=== PATIENT | male | born 1985 | race Caucasian/White ===

== ENCOUNTER 2016-10-08 15:44 | Emergency (ER) | payer MEDICAID ==
--- NOTE | 2016-10-08 16:03 | Emergency Department Record ---
History of Present Illness - General Chief complaint: Extremity Problem Stated complaint: PAIN IN LEFT ARM, HISTORY OF BLO C Time Seen by Provider: 10/08/16 16:02 Source: Patient Mode of Arrival: Ambulatory Limitations: No limitations - History of Present Illness Initial comments: The patient is here due to a sharp stabbing pain in the L bicep area. The pain is intermittent and is associated with intermittent numbness and tingling to his L hand. Presently there is no numbness or tingling. The patient also denies any CP, SOB, SHELIA or cough. Per the patient he has a hx of a blood clot in one of his arms but he is not sure which one. He has been on blood thinners in the past many years ago but not now. He is concerned about having a clot and would like a doppler test. MD Complaint: Extremity pain Onset/Timin -: Hour(s) Location: Left, Arm History of Same: Yes Severity scale (1-10): 8 Quality: Sharp, Stabbing, Other Consistency: Intermittent Improves with: Nothing Worsens with: Nothing Associated Symptoms: Denies other symptoms - Related Data Previous Rx's Medication Instructions Recorded Diazepam [Valium] 5 mg PO Q8H #10 tab 09/06/16 Hydrocodone/Acetaminophen [[place] 1 tab PO Q6H PRN #7 tab 09/06/16 5mg/325mg] Lisinopril 20 mg PO DAILY #30 tab 10/08/16 Allergies Allergy/AdvReac Type Severity Reaction Status Date / Time phenytoin sodium Allergy Severe ANAPHYLAXIS Verified 09/06/16 20:52 [From Dilantin] phenytoin sodium extended Allergy Severe ANAPHYLAXIS Verified 09/06/16 20:52 [From Dilantin] ketorolac tromethamine Allergy Intermediate MUSCLE PAIN Verified 09/06/16 20:52 [From Toradol] fluoxetine HCl [From Prozac] Allergy Unknown PT UNSURE Verified 09/06/16 20:52 OF REACTION carbamazepine [From Tegretol] Allergy ANAPHYLAXIS Verified 09/06/16 20:52 divalproex sodium Allergy ANAPHYLAXIS Verified 09/06/16 20:52 [From Depakote] Travel Screening - Travel/Exposure Within Last 30 Days Have you traveled within the last 30 days?: No - Travel/Exposure Within Last Year Have you traveled outside the [place] in the last year?: No - Additonal Travel Details Have you been exposed to anyone with a communicable illness?: No - Travel Symptoms Symptom Screening: None Review of Systems Constitutional: Denies: Chills, Fever Eyes: Denies: Eye discharge ENT: Denies: Congestion Respiratory: Denies: Cough, Dyspnea Past Medical History - SOCIAL HISTORY Smoking Status: Light tobacco smoker (<10/day) Alcohol Use: Occassional Drug Use: Occassional Drug Use Detail:: Cocaine, Marijuana - RESPIRATORY Hx Respiratory Disorders: No - CARDIOVASCULAR Hx Cardio Disorders: Yes Hx Hypertension: Yes - NEURO Hx Neuro Disorders: Yes Hx Seizures: Yes - GI Hx GI Disorders: No - Hx Genitourinary Disorders: No - ENDOCRINE Hx Endocrine Disorders: No - MUSCULOSKELETAL Hx Musculoskeletal Disorders: No - PSYCH Hx Psych Problems: No - HEMATOLOGY/ONCOLOGY Hx Hematology/Oncology Disorders: No Family Medical History Any Significant Family History?: Yes Hx HTN: Grandparents Physical Exam - General General Appearance: Alert, Oriented x3, Cooperative, No acute distress - Head Head exam: Atraumatic, Normocephalic, Normal inspection - Eye Eye exam: Normal appearance, PERRL - Neck Neck exam: Normal inspection, Full ROM. negative: Tenderness - Respiratory Respiratory exam: Normal lung sounds bilaterally. negative: Respiratory distress - Cardiovascular Cardiovascular Exam: Regular rate, Normal rhythm, Normal heart sounds - Extremities Extremities exam: Normal inspection, Full ROM (There is normal ROM to the L shoulder, elbow and wrist with no pain or difficulty.), Normal capillary refill , Tenderness (There is very mild tenderness to the medial bicep but no arm bruising, swelling, or erythema. ), Other (The L arm is NVI with normal pulses, sensation and motor function.). negative: Joint swelling - Neurological Neurological exam: Alert. negative: Motor sensory deficit Course Vital Signs 10/08/16 10/08/16 15:49 15:54 Temperature 98.2 F 98.2 F Pulse Rate [ 77 Pulse Ox Probe] Respiratory 16 16 Rate Blood Pressure 149/86 [Left Arm] Pulse Ox 98 98 - Reevaluation(s) Reevaluation #1: Due to the patient needing a Doppler test to R/O DVT and no US available here at [facility] I did recommend transfer to another hospital for the test. The patient states he would like to go to [facility]. I did discuss the case with Dr. Bradshaw in the ER and he accepts the patient in an ER to ER transfer. The patient also states he is out of his Lisinopril and would like a refill. 10/08/16 16:15 Reevaluation #2: The patient's exam is basically normal at this time and I do feel he has a very low probability of having an upper extremity DVT. With the patient being so stable at this time he will drive himself to the ER at [facility]. 10/08/16 16:20 Disposition Disposition: Discharge Clinical Impression: Arm pain, left Disposition: Acute Care Hospital Transfer Transfer To: [facility] Reason For Transfer: Doppler Accepting Physician: Leeann Time Discussed w/Accepting Physician: 16:17 Condition: (2) Stable Instructions: Paresthesia (ED) Additional Instructions: Please drive directly to the ER at [facility] for your Doppler test. Restart your Lisinopril as directed. Return to the ER for any problems. Prescriptions: Lisinopril 20 mg PO DAILY #30 tab Forms: Patient Portal Access Time of Disposition: 16:19
== END 2016-10-08 16:37 | disposition short-term general hospital (02) ==
LOC: ER 15:44
DX: M79.622 Pain in left upper arm (principal); I10 Essential (primary) hypertension; F17.210 Nicotine dependence, cigarettes, uncomplicated
CPT/HCPCS: 99283

== ENCOUNTER 2017-05-07 20:34 | Emergency (ER) | payer MEDICAID ==
[2017-05-07] MEDS ORDERED: IPRATROPIUM/ALBUTEROL (0.5MG/3MG) NEB INH ONE (21:34)
[2017-05-07] MEDS ORDERED: AMOXICILLIN/POTASSIUM CLAV 875MG/125MG TABLET PO ONE (21:34)
--- NOTE | 2017-05-07 21:54 | Emergency Department Record ---
History of Present Illness - General Chief complaint: Pain Stated complaint: PAIN IN RT GROIN Time Seen by Provider: 05/07/17 21:27 Source: Patient Mode of Arrival: Ambulatory Limitations: No limitations - History of Present Illness Initial comments: pt has productive cough green and ingrown hair on l thigh that he tried to squeeze and it became worse. pt wears a prosthesis and it rubs over ingrown hair causing pain Onset/Timin -: Week(s) Location: Right History of Same: No Severity scale (1-10): 8 Quality: Sharp, Stabbing Consistency: Intermittent, Getting worse Improves with: Immobilization Worsens with: Palpation, Walking, Weight bearing Associated Symptoms: Denies other symptoms - Related Data Home Medications Medication Instructions Recorded Confirmed Last Taken Bupropion HCl [Wellbutrin Xl] 300 mg PO DAILY 05/07/17 05/07/17 05/07/17 Diazepam [Valium] 10 mg PO DAILY 05/07/17 05/07/17 05/06/17 Hydrocodone/Acetaminophen [[place] 1 each PO BID PRN 05/07/17 05/07/17 05/06/17 7.5-325 Tablet] Previous Rx's Medication Instructions Recorded Amoxicillin/Potassium Clav 1 tab PO BID #14 tab 05/07/17 [Augmentin 875-125 Tablet] Allergies Allergy/AdvReac Type Severity Reaction Status Date / Time phenytoin sodium Allergy Severe ANAPHYLAXIS Unverified 01/11/17 08:35 [From Dilantin] phenytoin sodium extended Allergy Severe ANAPHYLAXIS Unverified 01/11/17 08:35 [From Dilantin] ketorolac tromethamine Allergy Intermediate MUSCLE PAIN Unverified 01/11/17 08: 35 [From Toradol] fluoxetine HCl [From Prozac] Allergy Unknown PT UNSURE Unverified 01/11/17 08:35 OF REACTION aripiprazole [From Abilify] Allergy ANAPHYLAXIS Verified 05/07/17 20:47 carbamazepine [From Tegretol] Allergy ANAPHYLAXIS Unverified 01/11/17 08:35 divalproex sodium Allergy ANAPHYLAXIS Unverified 01/11/17 08:35 [From Depakote] Travel Screening - Travel/Exposure Within Last 30 Days Have you traveled within the last 30 days?: No - Travel Symptoms Symptom Screening: None Review of Systems Reviewed: No additional complaints except as noted below Constitutional: Reports: As per HPI. Denies: Chills, Fever, Malaise, Night sweats, Weakness, Weight change Eyes: Reports: As per HPI. Denies: Eye discharge, Eye pain, Photophobia, Vision change ENT: Reports: As per HPI. Denies: Congestion, Dental pain, Ear pain, Epistaxis , Hearing loss, Throat pain Respiratory: Reports: As per HPI. Denies: Cough, Dyspnea, Hemoptysis, Stridor, Wheezes Cardiovascular: Reports: As per HPI. Denies: Arrhythmia, Chest pain, Dyspnea on exertion, Edema, Murmurs, Orthopnea, Palpitations, Paroxysmal nocturnal dyspnea, Rheumatic Fever, Syncope Endocrine: Reports: As per HPI. Denies: Fatigue, Heat or cold intolerance, Polydipsia, Polyuria Gastrointestinal: Reports: As per HPI. Denies: Abdominal pain, Constipation, Diarrhea, Hematemesis, Hematochezia, Melena, Nausea, Vomiting Genitourinary: Reports: As per HPI. Denies: Dysuria, Frequency, Hematuria, Incontinence, Retention, Testicular pain, Testicular mass, Urgency Musculoskeletal: Reports: As per HPI. Denies: Arthralgia, Back pain, Gout, Joint swelling, Myalgia, Neck pain Skin: Reports: As per HPI. Denies: Bruising, Change in color, Change in hair/ nails, Lesions, Pruritus, Rash Neurological: Reports: As per HPI. Denies: Abnormal gait, Confusion, Headache, Numbness, Paresthesias, Seizure, Tingling, Tremors, Vertigo, Weakness Psychiatric: Reports: As per HPI. Denies: Anxiety, Auditory hallucinations, Depression, Homicidal thoughts, Suicidal thoughts, Visual hallucinations Hematological/Lymphatic: Reports: As per HPI. Denies: Anemia, Blood Clots, Easy bleeding, Easy bruising, Swollen glands Past Medical History - SOCIAL HISTORY Smoking Status: Light tobacco smoker (<10/day) Alcohol Use: None Drug Use: None - RESPIRATORY Hx Respiratory Disorders: No - CARDIOVASCULAR Hx Cardio Disorders: Yes Hx Hypertension: Yes - NEURO Hx Neuro Disorders: Yes Hx Seizures: Yes - GI Hx GI Disorders: No - Hx Genitourinary Disorders: No - ENDOCRINE Hx Endocrine Disorders: No - MUSCULOSKELETAL Hx Musculoskeletal Disorders: No - PSYCH Hx Psych Problems: No - HEMATOLOGY/ONCOLOGY Hx Hematology/Oncology Disorders: No Family Medical History Any Significant Family History?: Yes Hx HTN: Grandparents Physical Exam - General General Appearance: Alert, Oriented x3, Cooperative, No acute distress - Head Head exam: Normal inspection - Eye Eye exam: Normal appearance, PERRL, EOMI Pupils: Normal accommodation - ENT ENT exam: Normal exam, Mucous membranes moist, Normal external ear exam, Normal orophraynx, TM's normal bilaterally Ear exam: Normal external inspection. negative: External canal tenderness Nasal Exam: Normal inspection. negative: Discharge, Sinus tenderness Mouth exam: Normal external inspection, Tongue normal Teeth exam: Normal inspection. negative: Dental caries Throat exam: Normal inspection. negative: Tonsillar erythema, Tonsillar exudate - Neck Neck exam: Normal inspection, Full ROM. negative: Tenderness - Respiratory Respiratory exam: Normal lung sounds bilaterally. negative: Respiratory distress - Cardiovascular Cardiovascular Exam: Regular rate, Normal rhythm, Normal heart sounds - GI/Abdominal GI/Abdominal exam: Soft, Normal bowel sounds. negative: Tenderness - Rectal Rectal exam: Deferred - exam: Deferred - Extremities Extremities exam: Normal inspection, Full ROM, Normal capillary refill. negative: Tenderness - Back Back exam: Reports: Normal inspection, Full ROM. Denies: Muscle spasm, Rash noted, Tenderness - Neurological Neurological exam: Alert, CN II-XII intact, Normal gait, Oriented X3 - Psychiatric Psychiatric exam: Normal affect, Normal mood - Skin Skin exam: Dry, Intact, Normal color, Warm Type of lesion: Abscess (tiny on r thigh) Course Vital Signs 05/07/17 05/07/17 20:43 21:38 Temperature 98.4 F Pulse Rate 88 Pulse Rate [ 88 Pulse Ox Probe] Respiratory 20 20 Rate Blood Pressure 138/95 [Left Arm] Pulse Ox 98 Disposition Disposition: Discharge Clinical Impression: Bronchitis, Abscess Disposition: Home, Self-Care Condition: (1) Good Instructions: Acute Bronchitis (ED), Abscess (ED) Additional Instructions: warm soaks 4 times a day. follow up with family doctor. return sooner if worse. Prescriptions: Amoxicillin/Potassium Clav [Augmentin 875-125 Tablet] 1 tab PO BID #14 tab Forms: Patient Portal Access Quality - Quality Measures Quality Measures: N/A - Blood Pressure Screening Blood Pressure Classification: Hypertensive Reading Systolic Measurement: 138 Diastolic Measurement: 95 Screening for High Blood Pressure: < Pre-Hypertensive BP, F/U Documented > [ G8950] Pre-Hypertensive Follow-up Interventions: Follow-up with rescreen every year.
== END 2017-05-07 22:12 | disposition home or self-care (01) ==
LOC: ER 20:34
DX: J20.9 Acute bronchitis, unspecified (principal); L02.415 Cutaneous abscess of right lower limb
CPT/HCPCS: 94640; 99283

== ENCOUNTER 2017-05-15 22:53 | Emergency (ER) | payer MEDICAID ==
[2017-05-15] MEDS: IPRATROPIUM/ALBUTEROL (0.5MG/3MG) NEB INH ONE (23:06)
[2017-05-15] MEDS: ALBUTEROL SULFATE (0.083%) 2.5 MG/3 ML NEB INH ONE (23:15)
[2017-05-15] MEDS: METHYLPREDNISOLONE PF 125MG/VIAL IVP ONE (23:20)
[2017-05-15] MEDS: LORAZEPAM 2 MG/ML VIAL IV ONE (23:20)
--- NOTE | 2017-05-15 23:21 | Emergency Department Record ---
History of Present Illness - General Chief Complaint: Shortness of breath Stated Complaint: SHELIA Time Seen by Provider: 05/15/17 23:01 Source: Patient Mode of Arrival: Ambulatory Limitations: No limitations - History of Present Illness Initial Comments: The patient is here due to a 1 hour hx of SOB. He has been treated for about a week for bronchitis and is on Augmentin. He now states about an hour ago he became very SOB. He denies any CP, fever, back pain but has had mild sputum production. He did use his mothers nebulizer but it did not help. The patient has a hx of seizures and is on multiple medicines but denies being out of any. He states he has no hx of similar issues. MD Complaint: Shortness of breath Onset/Timin -: Hour(s) Consistency: Constant Improves With: Nothing Worsens With: Nothing Associated Symptoms: Cough, Sputum production - Related Data Home Medications Medication Instructions Recorded Confirmed Last Taken Bupropion HCl [Wellbutrin Xl] 300 mg PO DAILY 05/07/17 05/16/17 05/07/17 Diazepam [Valium] 10 mg PO DAILY 05/07/17 05/16/17 05/06/17 Hydrocodone/Acetaminophen [[place] 1 each PO BID PRN 05/07/17 05/16/17 05/06/17 7.5-325 Tablet] Previous Rx's Medication Instructions Recorded Amoxicillin/Potassium Clav 1 tab PO BID #14 tab 05/07/17 [Augmentin 875-125 Tablet] Albuterol Sulfate [Proair Hfa] 2 puff IH QID PRN #1 inhaler 05/16/17 Azithromycin [Zithromax] 250 mg PO ASDIR #6 tab 05/16/17 Prednisone [Prednisone 20Mg] 40 mg PO DAILY #10 tab 05/16/17 Allergies Allergy/AdvReac Type Severity Reaction Status Date / Time phenytoin sodium Allergy Severe ANAPHYLAXIS Unverified 01/11/17 08:35 [From Dilantin] phenytoin sodium extended Allergy Severe ANAPHYLAXIS Unverified 01/11/17 08:35 [From Dilantin] ketorolac tromethamine Allergy Intermediate MUSCLE PAIN Unverified 01/11/17 08: 35 [From Toradol] fluoxetine HCl [From Prozac] Allergy Unknown PT UNSURE Unverified 01/11/17 08:35 OF REACTION aripiprazole [From Abilify] Allergy ANAPHYLAXIS Verified 05/07/17 20:47 carbamazepine [From Tegretol] Allergy ANAPHYLAXIS Unverified 01/11/17 08:35 divalproex sodium Allergy ANAPHYLAXIS Unverified 01/11/17 08:35 [From Depakote] Review of Systems Constitutional: Denies: Chills, Fever Eyes: Denies: Eye discharge ENT: Reports: Congestion Respiratory: Reports: Cough. Denies: Dyspnea, Hemoptysis Cardiovascular: Denies: Chest pain Past Medical History - SOCIAL HISTORY Smoking Status: Light tobacco smoker (<10/day) Drug Use: None - RESPIRATORY Hx Respiratory Disorders: No - CARDIOVASCULAR Hx Cardio Disorders: Yes Hx Hypertension: Yes - NEURO Hx Neuro Disorders: Yes Hx Seizures: Yes - GI Hx GI Disorders: No - Hx Genitourinary Disorders: No - ENDOCRINE Hx Endocrine Disorders: No - MUSCULOSKELETAL Hx Musculoskeletal Disorders: No - PSYCH Hx Psych Problems: No - HEMATOLOGY/ONCOLOGY Hx Hematology/Oncology Disorders: No Family Medical History Hx HTN: Grandparents Physical Exam - General General Appearance: Alert, Cooperative, Mild distress (due to SHELIA.) - Head Head exam: Atraumatic, Normocephalic, Normal inspection - Eye Eye exam: Normal appearance, PERRL - ENT Throat exam: Normal inspection. negative: Tonsillar erythema, Tonsillar exudate - Neck Neck exam: Normal inspection, Full ROM. negative: Lymphadenopathy, Tenderness - Respiratory Respiratory exam: Accessory muscle use, Respiratory distress (mild). negative: Normal lung sounds bilaterally, Decreased breath sounds (There is good aeration bilaterally with wheezes at the bases L>R.), Rales - Cardiovascular Cardiovascular Exam: Regular rate, Normal rhythm, Normal heart sounds - GI/Abdominal GI/Abdominal exam: Soft, Normal bowel sounds. negative: Tenderness Course Vital Signs 05/15/17 23:06 Pulse Rate 113 H Respiratory 26 H Rate Pulse Ox 100 - Reevaluation(s) Reevaluation #1: The patient is doing better at this time. His breathing is slowing down and his HR is around 100. His biox is 100% on 2 L of O2. The patient appears much more comfortable. 05/15/17 23:29 Reevaluation #2: The patient is doing better but is still having some SHELIA. His lungs are clear on exam and his Biox is 98%. There no longer are any wheezes or retractions. 05/16/17 00:25 Reevaluation #3: The patient is doing extremely well at this time. His breathing is back to normal and his RA biox is 99%. On exam his lungs are clear with no wheezes or rhonchi. 05/16/17 01:21 Reevaluation #4: The patient is now 100% back to normal. His RA biox is 100% and he denies any SHELIA, ST, speech changes, or SOB. He is up walking and talking normally and would really like to go home. I explained to him I am not sure what exactly caused his SHELIA that brought him to the ER. His lungs were clear for me from the beginning so I am not sure if he was just having an anxiety attack or possibly even an allergic rxn. Due to the confusion as to the etiology of his illness I did recommend hospital admission. I explained to him that I wanted him to stay overnight to monitor his heart and lungs and to make sure he did not have an AR even though I do believe that it is quite unlikely. The patient states he is unable to stay in the hospital and would like to go home. I explained to him that the risks of leaving are that he could go home and have an AR, stroke, become disabled and even . The patient understands and accepts the risks of leaving and understands we cannot be held liable for NOT admitting him to the hospital. Her presently has proper decision making capacity and understands the need to return if his symptoms return. He is to take an inhaller for home and also start a ZPAK along with Prednisone. 05/16/17 01:46 05/16/17 02:07 Medical Decision Making - Data Complexity MDM Data: Labs Ordered and/or Reviewed, X-Ray Ordered and/or Reviewed, EKG Ordered and/or Reviewed - Lab Data Result diagrams: 05/15/17 23:10 05/15/17 23:10 - EKG Data -: EKG Interpreted by Me EKG: No Acute Changes, Normal EKG - Radiology Data Radiology results: Image reviewed (CXR: Neg ST Neck: Neg) Disposition Disposition: Discharge Clinical Impression: Dyspnea, unspecified Qualifiers: Dyspnea type: unspecified Qualified Code(s): R06.00 - Dyspnea, unspecified Disposition: Home, Self-Care Condition: (1) Good Instructions: Dyspnea (ED) Additional Instructions: Please use the inhaller as directed and start the Zpak and Prednisone tomorrow. Please see your PCP later this week for recheck. Return to the ER for any increased cough, ANY shortness of breath or trouble breathing or any chest pain or fever. Prescriptions: Albuterol Sulfate [Proair Hfa] 2 puff IH QID PRN #1 inhaler PRN Reason: Cough And Difficulty Breathing Azithromycin [Zithromax] 250 mg PO ASDIR #6 tab Prednisone [Prednisone 20Mg] 40 mg PO DAILY #10 tab Forms: Patient Portal Access Time of Disposition: 01:53 Quality - Quality Measures Quality Measures: N/A - Blood Pressure Screening View Details: Yes Does Patient Have Any of the Following: No Blood Pressure Classification: Pre-Hypertensive BP Reading Systolic Measurement: 141 Diastolic Measurement: 83 Screening for High Blood Pressure: < Pre-Hypertensive BP, F/U Documented > [ G8950] Pre-Hypertensive Follow-up Interventions: Referral to alternative/primary care provider.
[2017-05-15 23:27] LABS: BASO % 0.4 % (0-6); GRAN % 47.6 % (47-80); HEMATOCRIT 48.4 % (42.0-52.0); HEMOGLOBIN 16.5 gm/dl (14.0-18.0); LYMPH % 41.1 % (16-45); MEAN CELL VOLUME 90.8 fl (81-97); MEAN CORPUSCULAR HGB CONC 34.1 g/dl (32-36); MEAN PLATELET VOLUME 9.7 fl (7.4-10.4); MONO % 8.9 % (0-9); PLATELET COUNT 323 K/uL (130-400); RED BLOOD COUNT 5.33 M/uL (4.40-5.70); RED CELL DISTRIBUTION WIDTH 12.9 % (11.5-14.5); WHITE BLOOD COUNT W/O DIFF 7.5 K/uL (4.2-12.2)
[2017-05-15 23:37] LABS: ANION GAP 10.9 (7-16); BLOOD UREA NITROGEN 19 mg/dL (9-20); CARBON DIOXIDE 25.1 mmol/L (22-30); CREATININE 1.2 mg/dL (0.66-1.25); EST GLOMERULAR FILTRATION RATE > 60 ml/min; GLUCOSE,RANDOM 100 mg/dL (70-110)
[2017-05-15 23:41] LABS: INR 0.95; PROTHROMBIN TIME (PATIENT) 10.3 SECONDS (9.5-12.1)
[2017-05-15 23:42] LABS: D-DIMER < 0.19 mg/L FEU (0-0.59)
[2017-05-15 23:50] LABS: TROPONIN I < 0.012 ng/mL (0.00-0.034)
[2017-05-16] MEDS: ALBUTEROL SULFATE (0.083%) 2.5 MG/3 ML NEB INH ONE (00:40)
[2017-05-16] MEDS: AZITHROMYCIN 500 MG TABLET PO ONE (02:09)
--- NOTE | 2017-05-17 10:39 | RADIOLOGY REPORT ---
EXAM: PORTABLE CHEST HISTORY: SHORTNESS OF BREATH, DIFFICULTY IN BREATHING. TECHNIQUE: AP semi-upright portable view of the chest was obtained. Comparison: No prior chest x-ray with which to compare. FINDINGS: The heart size is within normal limits. The lungs appear expanded with no definite acute infiltrate seen. No pleural effusion or pneumothorax evident. IMPRESSION: PORTABLE CHEST APPEARS NEGATIVE. JOB NUMBER: [id number] MTDD
--- NOTE | 2017-05-17 10:44 | RADIOLOGY REPORT ---
EXAM: CHEST, TWO VIEWS HISTORY: COUGH AND DIFFICULTY IN BREATHING. TECHNIQUE: PA and lateral views of the chest were obtained. Comparison: AP semi-upright portable chest from last evening on 05/15/17. FINDINGS: The heart size is within normal limits. The lungs continue to appear expanded with no definite acute infiltrate seen. No pleural effusion or pneumothorax evident. Minor thoracic curve to the right. IMPRESSION: MINOR THORACIC CURVE TO THE RIGHT. NO ACUTE INFILTRATE IDENTIFIED. JOB NUMBER: [id number] MTDD
--- NOTE | 2017-05-17 10:53 | RADIOLOGY REPORT ---
EXAM: SOFT TISSUE NECK HISTORY: DIFFICULTY IN BREATHING. TECHNIQUE: AP and lateral views of the neck were obtained for purposes of soft tissue evaluation. Comparison: None. FINDINGS: The epiglottis is of normal size. No distention of the hypopharynx or narrowing of the subglottic airway identified. No prevertebral soft tissue swelling is seen. The visualized cervical intervertebral disk spaces are maintained. IMPRESSION: THE SOFT TISSUES OF THE NECK APPEAR NEGATIVE DESCRIBED ABOVE. JOB NUMBER: [id number] MTDD
== END 2017-05-16 02:11 | disposition home or self-care (01) ==
LOC: ER 22:53
DX: R06.00 Dyspnea, unspecified (principal); R05 Cough; I10 Essential (primary) hypertension; F17.210 Nicotine dependence, cigarettes, uncomplicated
CPT/HCPCS: 99284 ×2; 96374; 96375; 85025; 85730; 85610; 84484; 80048; 85379; 71010; 71020; 70360; 94640 ×3; 93005; 93010; J2060; J2930; J7613

== ENCOUNTER 2018-12-19 02:12 | Emergency (ER) | payer MEDICAID ==
[2018-12-19] MEDS ORDERED: LORAZEPAM 2 MG/ML VIAL IV ONE (02:17)
[2018-12-19] MEDS ORDERED: **ER** KETAMINE HCL 500MG/10ML VIAL IV ONE (02:21)
--- NOTE | 2018-12-19 02:31 | Emergency Department Record ---
History of Present Illness - General Chief Complaint: Seizures Time Seen by Provider: 12/19/18 02:16 Source: EMS Mode of Arrival: EMS Limitations: Altered mental status - History of Present Illness Initial Comments: 33 yo male presents to ED for evaluation following (2) witnessed seizures this evening. Patient's family member reported to EMS a long-standing history of seizures, takes Keppra for seizure prophylaxis. Patient was reportedly drinking alcohol this evening, tripped over his prosthesis resulting in injury to the head. Patient received Versed IM 10 mg prior to arrival. MD Complaint: Seizure Onset/Timin -: Hour(s) Description of Episode: Tonic-clonic movement Witnessed: Yes - by bystander Seizure History: Known seizure disorder Place: Home - Related Data Home Medications Medication Instructions Recorded Confirmed Last Taken Gabapentin [Neurontin] 600 mg PO TID 12/19/18 12/19/18 Unknown Previous Rx's Medication Instructions Recorded Albuterol Sulfate [Proair Hfa] 2 puff IH QID PRN #1 inhaler 05/16/17 Prednisone [Prednisone 20Mg] 40 mg PO DAILY #10 tab 05/16/17 Allergies Allergy/AdvReac Type Severity Reaction Status Date / Time phenytoin sodium Allergy Severe ANAPHYLAXIS Unverified 01/11/17 08:35 [From Dilantin] phenytoin sodium extended Allergy Severe ANAPHYLAXIS Unverified 01/11/17 08:35 [From Dilantin] ketorolac tromethamine Allergy Intermediate MUSCLE PAIN Unverified 01/11/17 08: 35 [From Toradol] fluoxetine HCl [From Prozac] Allergy Unknown PT UNSURE Unverified 01/11/17 08:35 OF REACTION aripiprazole [From Abilify] Allergy ANAPHYLAXIS Verified 05/07/17 20:47 carbamazepine [From Tegretol] Allergy ANAPHYLAXIS Unverified 01/11/17 08:35 divalproex sodium Allergy ANAPHYLAXIS Unverified 01/11/17 08:35 [From Depakote] Travel Screening - Travel/Exposure Within Last 30 Days Have you traveled within the last 30 days?: No - Travel Symptoms Symptom Screening: None Review of Systems ROS unobtainable: Due to mental status Past Medical History - SOCIAL HISTORY Smoking Status: Light tobacco smoker (<10/day) Drug Use: None - RESPIRATORY Hx Respiratory Disorders: No - CARDIOVASCULAR Hx Cardio Disorders: Yes Hx Hypertension: Yes - NEURO Hx Neuro Disorders: Yes Hx Seizures: Yes - GI Hx GI Disorders: No - Hx Genitourinary Disorders: No - ENDOCRINE Hx Endocrine Disorders: No - MUSCULOSKELETAL Hx Musculoskeletal Disorders: No - PSYCH Hx Psych Problems: No - HEMATOLOGY/ONCOLOGY Hx Hematology/Oncology Disorders: No Family Medical History Hx HTN: Grandparents Physical Exam - General General Appearance: Moderate distress, Other (Actively seizing on arrival) Limitations: Altered mental status - Head Head exam: Atraumatic, Normocephalic, Normal inspection Head exam detail: negative: Abrasion, Contusion, Ramirez's sign, General tenderness, Hematoma, Laceration - Eye Eye exam: negative: Conjunctival injection, Periorbital swelling, Periorbital tenderness, Scleral icterus - ENT Ear exam: negative: Auricular hematoma, Auricular trauma Nasal Exam: Dried blood (Right nare). negative: Active bleeding, Discharge, Foreign body Mouth exam: negative: Tongue elevation - Neck Neck exam: negative: Meningismus - Respiratory Respiratory exam: Normal lung sounds bilaterally. negative: Rales, Respiratory distress, Rhonchi, Stridor - Cardiovascular Cardiovascular Exam: Normal rhythm, Normal heart sounds, Tachycardia - GI/Abdominal GI/Abdominal exam: Soft. negative: Rebound, Rigid, Tenderness - Rectal Rectal exam: Deferred - exam: Deferred - Extremities Extremities exam: Other (BKA right, FROM remaining 3 extremities) - Neurological Neurological exam: Other (Seizing on examination) - Psychiatric Psychiatric exam: Other (cannot assess) - Skin Skin exam: Normal color. negative: Abrasion Type of lesion: negative: abrasion Course - Reevaluation(s) Reevaluation #1: 12/19/18 02:26 Patient is now more calm following Ativan 2 mg IV, asking questions and confused. Will attempt to obtain CT imaging of the head at this time. Reevaluation #2: 12/19/18 02:42 Escorted patient and staff to CT for constant monitoring and airway observation , back from CT at this time. Will obtain portable shoulder films. Reevaluation #3: 12/19/18 02:47 EKG: Sinus tachycardia 104 Normal axis, normal intervals (QRS 103 ms) No acute ST-T wave changes Reevaluation #4: 12/19/18 02:54 Laboratory studies were reviewed and are grossly unremarkable for an acute process except: CO2 16 AG 24 CPK 366 ETOH 0.107 Left shoulder: No acute fracture or subluxation is noted on examination. CT Brain was reviewed, preliminary review does not demonstrate and acute hemorrhage. Reevaluation #5: 12/19/18 03:04 CT Brain: No acute process Call to [facility] placed to initiate transfer. 12/19/18 03:09 Case was discussed with Dr. Dyson, will accept transfer pending bed placement. Medical Decision Making - Lab Data Result diagrams: 12/19/18 02:30 12/19/18 02:30 Critical Care Time Critical Care Time: Yes Total Critical Care Time: 45 Critical Care Time: Evaluation and treatment for status epilepticus, constant monitoring for transfer to CT imaging, interpretation of laboratory results/CT imaging, updating family member at the bedside, initiation for transfer to [facility] for further evaluation. Disposition Disposition: Transfer Clinical Impression: Status epilepticus Disposition: Acute Care Hospital Transfer Transfer To: [facility] Reason For Transfer: Status Epilepticus Accepting Physician: Kiel Time Discussed w/Accepting Physician: 03:10 Condition: (2) Stable Forms: Patient Portal Access Time of Disposition: 03:10 Quality - Quality Measures Quality Measures: N/A - Blood Pressure Screening Does Patient Have Any of the Following: No Blood Pressure Classification: Normal BP Reading Systolic Measurement: 112 Diastolic Measurement: 61 Screening for High Blood Pressure: < Normal BP, F/U Not Required > [G8783]
[2018-12-19 02:38] LABS: BASO % 0.2 % (0-6); EOS % 0.4 % (0-6); GRAN % 59.7 % (47-80); HEMATOCRIT 51.5 % (42.0-52.0); HEMOGLOBIN 17.1 gm/dl (14.0-18.0); LYMPH % 33.1 % (16-45); MEAN CELL VOLUME 95.5 fl (81-97); MEAN CORPUSCULAR HEMOGLOBIN 31.7 pg (27-33); MEAN CORPUSCULAR HGB CONC 33.2 g/dl (32-36); MEAN PLATELET VOLUME 9.5 fl (7.4-10.4); MONO % 6.6 % (0-9); PLATELET COUNT 318 K/uL (130-400); RED BLOOD COUNT 5.39 M/uL (4.40-5.70); RED CELL DISTRIBUTION WIDTH 13.3 % (11.5-14.5); WHITE BLOOD COUNT W/O DIFF 10.4 K/uL (4.2-12.2)
[2018-12-19 02:46] LABS: BLOOD UREA NITROGEN 12 mg/dL (6-20); CREATININE 1.2 mg/dL (0.7-1.2); EST GLOMERULAR FILTRATION RATE > 60 mL/min; TOTAL PROTEIN 7.3 g/dL (6.6-8.7)
[2018-12-19 02:48] LABS: ALCOHOL 0.107 g/dL (0-0.010); GLUCOSE,RANDOM 111 mg/dL (74-109)
[2018-12-19 02:51] LABS: ALB/GLOB RATIO 1.7 (1.1-1.8); ALBUMIN 4.6 g/dL (4.0-5.0); ALKALINE PHOSPHATASE 64 U/L (40-129); ALT/SGPT 21 U/L (<41); AST/SGOT 25 U/L (10.0-50.0); CREATINE PHOSPHOKINASE 366 U/L (39-308)
[2018-12-19] MEDS: 0.9 % SODIUM CHLORIDE 1000ML 1,000 ML IV SCH ×2 (03:10→04:10)
[2018-12-19] MEDS ORDERED: 0.9 % SODIUM CHLORIDE 1000ML 1,000 ML IV SCH (03:30)
--- NOTE | 2018-12-22 13:53 | RADIOLOGY REPORT ---
EXAM: SHOULDER, LEFT HISTORY: PAIN AFTER SEIZURE. TECHNIQUE: Internal and external humerus rotation AP views of the left shoulder are obtained as well as a scapular Y-view. COMPARISON: None. ENCOUNTER: Initial. FINDINGS: There is normal bone mineralization. No fracture, dislocation, or destructive bone lesion is seen. The articular relations are grossly maintained. No focal soft tissue abnormality identified. IMPRESSION: NO ACUTE BONE NOR JOINT ABNORMALITY IDENTIFIED. JOB NUMBER: [id number] MTDD
--- NOTE | 2018-12-22 14:25 | CT SCAN REPORT ---
EXAM: CT SCAN HEAD WO CONTRAST HISTORY: FALL FROM SEIZURE. LOSS OF CONSCIOUSNESS. TECHNIQUE: Routine noncontrast CT examination of the head. COMPARISON: None. FINDINGS: The ventricles and subarachnoid spaces are normal in size. There are coarse calcifications in the subependymal frontal lobes, with the largest on the right measuring 8-9 mm in diameter. The largest on the left measures 7 mm. No other area of abnormally increased or decreased or attenuation is noted throughout the brain substance. No abnormal extraaxial fluid collection. No skull fracture identified. The visualized paranasal sinuses and mastoid air cells are clear with the exception of a retention cyst or less likely a polyp within the right maxillary sinus. The orbits as visualized are unremarkable. IMPRESSION: 1. CHRONIC BENIGN SUBEPENDYMAL CALCIFICATIONS WITHIN THE FRONTAL LOBES. 2. NO CT EVIDENCE OF AN ACUTE INTRACRANIAL ABNORMALITY. 3. RETENTION CYST OR LESS LIKELY A POLYP IN THE RIGHT MAXILLARY SINUS. JOB NUMBER: [id number] MTDD
== END 2018-12-19 05:04 | disposition short-term general hospital (02) ==
LOC: ER 02:12
DX: G40.401 Other generalized epilepsy and epileptic syndromes, not intractable, with status epilepticus (principal); S09.90XA Unspecified injury of head, initial encounter; S49.92XA Unspecified injury of left shoulder and upper arm, initial encounter; I10 Essential (primary) hypertension; F17.210 Nicotine dependence, cigarettes, uncomplicated; W06.XXXA Fall from bed, initial encounter; Y92.009 Unspecified place in unspecified non-institutional (private) residence as the place of occurrence of the external cause
CPT/HCPCS: 99285 ×2; 96374; 96361; 82550; 85025; 80053; 73030; 70450; 93005; 93010; G0480; J2060; 80320; J7030

== ENCOUNTER 2018-12-30 21:27 | Emergency (ER) | payer MEDICAID ==
[2018-12-30] MEDS ORDERED: ONDANSETRON HCL IV 4 MG/2 ML VIAL IVP ONE (21:34)
--- NOTE | 2018-12-30 21:42 | Emergency Department Record ---
History of Present Illness - General Chief Complaint: Fall Injury Stated Complaint: FALL Time Seen by Provider: 12/30/18 21:31 Source: Patient Mode of Arrival: Wheelchair Limitations: No limitations - History of Present Illness Initial Comments: 33 yo male presents to ED for evaluation following a fall down several steps this evening while carrying groceries. Patient reports pain to the right posterior ribs, right upper extremity. Patient denies LOC, but does have a significant history of seizures. Patient denies seizure this evening, does report drinking alcohol this evening as well. MD Complaint: Fall Onset/Timin -: Minutes(s) Fall From: Down stairs (#) When Fall Occurred: Just prior to arrival Fall Witnessed: Yes, by family Place Fall Occurred: Home Loss of Consciousness: None Prolonged Down Time?: No Symptoms Prior to Fall: None Location: Chest, Back Location - Extremities: Right: Arm, Elbow, Forearm Severity: Moderate Associated Symptoms: Denies - [place] Coma Scale Eye Response: (4) Open spontaneously Motor Response: (6) Obeys commands Verbal Response: (5) Oriented [place] Total: 15 - Related Data Previous Rx's Medication Instructions Recorded Albuterol Sulfate [Proair Hfa] 2 puff IH QID PRN #1 inhaler 05/16/17 Prednisone [Prednisone 20Mg] 40 mg PO DAILY #10 tab 05/16/17 Allergies Allergy/AdvReac Type Severity Reaction Status Date / Time phenytoin sodium Allergy Severe ANAPHYLAXIS Verified 12/31/18 03:32 [From Dilantin] phenytoin sodium extended Allergy Severe ANAPHYLAXIS Verified 12/31/18 03:32 [From Dilantin] ketorolac tromethamine Allergy Intermediate MUSCLE PAIN Verified 12/31/18 03:32 [From Toradol] fluoxetine HCl [From Prozac] Allergy Unknown PT UNSURE Verified 12/31/18 03:32 OF REACTION aripiprazole [From Abilify] Allergy ANAPHYLAXIS Verified 12/31/18 03:32 carbamazepine [From Tegretol] Allergy ANAPHYLAXIS Verified 12/31/18 03:32 divalproex sodium Allergy ANAPHYLAXIS Verified 12/31/18 03:32 [From Depakote] Review of Systems Constitutional: Denies: Chills, Fever, Malaise, Night sweats Eyes: Denies: Eye discharge, Eye pain ENT: Denies: Congestion, Ear pain, Epistaxis Respiratory: Denies: Cough, Dyspnea Cardiovascular: Denies: Chest pain, Dyspnea on exertion Endocrine: Denies: Fatigue, Heat or cold intolerance Gastrointestinal: Denies: Abdominal pain, Nausea, Vomiting Genitourinary: Denies: Incontinence, Retention Musculoskeletal: Reports: Arthralgia, Back pain. Denies: Gout, Joint swelling Skin: Denies: Bruising, Change in color Neurological: Denies: Abnormal gait, Confusion, Headache, Seizure Psychiatric: Denies: Anxiety Hematological/Lymphatic: Denies: Anemia, Blood Clots Past Medical History - SOCIAL HISTORY Smoking Status: Light tobacco smoker (<10/day) Drug Use: None - RESPIRATORY Hx Respiratory Disorders: No - CARDIOVASCULAR Hx Cardio Disorders: Yes Hx Hypertension: Yes - NEURO Hx Neuro Disorders: Yes Hx Seizures: Yes - GI Hx GI Disorders: No - Hx Genitourinary Disorders: No - ENDOCRINE Hx Endocrine Disorders: No - MUSCULOSKELETAL Hx Musculoskeletal Disorders: No - PSYCH Hx Psych Problems: No - HEMATOLOGY/ONCOLOGY Hx Hematology/Oncology Disorders: No Family Medical History Hx HTN: Grandparents Physical Exam - General General Appearance: Alert, Oriented x3, Cooperative, Moderate distress Limitations: No limitations - Head Head exam: Atraumatic, Normocephalic, Normal inspection Head exam detail: negative: Abrasion, Contusion, Ramirez's sign, General tenderness, Hematoma, Laceration - Eye Eye exam: Normal appearance. negative: Conjunctival injection, Periorbital swelling, Periorbital tenderness, Scleral icterus - ENT Ear exam: negative: Auricular hematoma, Auricular trauma Nasal Exam: negative: Active bleeding, Discharge, Dried blood, Foreign body Mouth exam: negative: Drooling, Laceration, Muffled voice, Tongue elevation - Neck Neck exam: Normal inspection. negative: Meningismus, Tenderness - Respiratory Respiratory exam: Normal lung sounds bilaterally, Chest wall tenderness (TTP posterior chest wall/lower thoracic spine on examination.). negative: Rales, Respiratory distress, Rhonchi, Stridor - Cardiovascular Cardiovascular Exam: Regular rate, Normal rhythm, Normal heart sounds - GI/Abdominal GI/Abdominal exam: Soft. negative: Rebound, Rigid, Tenderness - Rectal Rectal exam: Deferred - exam: Deferred - Extremities Extremities exam: Tenderness (TTP right upper humerus, right forearm. No obvious deformity is present on examination, strong distal radial pulse, compartments of the forearm and upper arm are soft on exmaination.). negative: Calf tenderness, Pedal edema - Back Back exam: Reports: CVA tenderness (R), Paraspinal tenderness - Neurological Neurological exam: Alert, Normal gait, Oriented X3 - Psychiatric Psychiatric exam: Normal affect, Normal mood - Skin Skin exam: Normal color. negative: Abrasion Type of lesion: negative: abrasion Course - Reevaluation(s) Reevaluation #1: 12/30/18 21:46 After numerous attempts to convince the patient to have laboratory studies performed following his trauma, patient is refusing. Patient is also declining analgesia at this time. Will obtain imaging studies and reassess. Reevaluation #2: 12/30/18 22:27 Patient had a witnessed seizure while in CT, Ativan 2mg IV ordered in CT. Patient continued to seize upon return from CT 2 minutres later, additional 1 mg IV ordered. Patient has now stopped seizing. Reevaluation #3: 12/30/18 22:49 Patient re-evaluated, appears post-ictal, but is answering questions on examination. Reevaluation #4: 12/30/18 23:11 Laboratory studies were reviewed and are grossly unremarkable for an acute process except for an elevated alcohol level of 0.065. Patient sleeping at this time. CT Head: No acute process CT Cervical Spine: Negative for fracture or dislocation reten cyst right maxillary sinus CT Chest: Right scapular winging Mild anterior wedging T6, T7 vertebral, indeterminate age without evidence or retropulsion. No marginal STS present. CT Abdomen/Pelvis: No acute traumatic injury identified 12/30/18 23:26 Right Humerus: No acute process Right Forearm: No acute fracture identified. Patient's SO was updated on all results, thus far, patient remains post-ictal at this time. Will continue to monitor closely. 12/30/18 23:30 Reevaluation #5: 12/31/18 00:05 Attempted rouse the patient at this time, remains sleepy on examination. SO updated on the plan of care at this time. 12/31/18 00:45 Patient is more arousable to voice, remains groggy. Will continue to monitor. 12/31/18 01:22 Patient was reassessed, remains drowsy on re-examination. 12/31/18 02:28 Patient was reassessed, arouses to physical stimuli but quickly falls back asleep. Will continue to monitor until patient can verbalize consent for transfer for possible acute wedge deformities at T5/T6. 12/31/18 06:18 Patient is now awake, more alert. Discussed CT imaging findings suspicious for wedge deformities at T6/T7, patient still complains of back pain on examination. Patient was transferred to [facility] 1 week ago following intractable seizures, left AMA 1 hour after arrival. Recommended transfer to [facility] for Trauma evaluation, patient is in agreement with transfer for evaluation by private car only. 12/31/18 06:23 Case was discussed with Darci Saravia, will accept transfer by private car for for further evaluation. Medical Decision Making - Lab Data Result diagrams: 12/30/18 22:42 12/30/18 22:42 Critical Care Time Critical Care Time: Yes Total Critical Care Time: 120 Critical Care Time: Trauma evaluation and diagnosis of compression deformities thoracic spine, diagnosis and treatment of witnessed seizure in ED, interpretation of radiographs of the right upper extremity, review of laboratory studies, frequent reassessments and cardio-pulmonary monitoring, initiation of transfer to [facility] for trauma evaluation, documental of patient's progress in ED. Disposition Disposition: Transfer Clinical Impression: Seizure, Multiple contusions Fall down stairs Qualifiers: Encounter type: initial encounter Qualified Code(s): W10.8XXA - Fall (on) (from ) other stairs and steps, initial encounter Wedge fracture of thoracic vertebra Qualifiers: Encounter type: initial encounter Thoracic vertebra fracture level: T5 Fracture type: closed Qualified Code(s): S22.050A - Wedge compression fracture of T5-T6 vertebra, initial encounter for closed fracture Disposition: Home, Self-Care Transfer To: [facility] Reason For Transfer: Trauma evaluation Accepting Physician: Darci Gomez Time Discussed w/Accepting Physician: :23 Condition: (2) Stable Instructions: Vertebral Compression Fracture (ED) Additional Instructions: Return to ED if your symptoms worsen or if you have any concerns. Ibuprofen as directed. Follow-up with your family doctor in 1-3 days as directed. Forms: Patient Portal Access Time of Disposition: :23 Quality - Quality Measures Quality Measures: N/A - Blood Pressure Screening Does Patient Have Any of the Following: No Blood Pressure Classification: Hypertensive Reading Systolic Measurement: 136 Diastolic Measurement: 93 Screening for High Blood Pressure: < Second Hypertensive BP, F/U Documented > [ G8950] First Hypertensive Follow-up Interventions: Referral to alternative/primary care provider. Second Hypertensive Follow-up Interventions: Referral to alternative/primary care provider.
[2018-12-30] MEDS ORDERED: 0.9 % SODIUM CHLORIDE 1000ML 1,000 ML IV SCH (21:45)
[2018-12-30] MEDS ORDERED: LORAZEPAM 2 MG/ML VIAL IV ONE (22:17)
[2018-12-30 22:44] LABS: BASO % 0.2 % (0-6); GRAN % 67.9 % (47-80); HEMATOCRIT 45.4 % (42.0-52.0); HEMOGLOBIN 15.5 gm/dl (14.0-18.0); MEAN CELL VOLUME 93.4 fl (81-97); MEAN CORPUSCULAR HEMOGLOBIN 31.9 pg (27-33); MEAN CORPUSCULAR HGB CONC 34.1 g/dl (32-36); MEAN PLATELET VOLUME 9.4 fl (7.4-10.4); MONO % 7.9 % (0-9); PLATELET COUNT 254 K/uL (130-400); RED BLOOD COUNT 4.86 M/uL (4.40-5.70); WHITE BLOOD COUNT W/O DIFF 9.4 K/uL (4.2-12.2)
[2018-12-30 22:57] LABS: BLOOD UREA NITROGEN 11 mg/dL (6-20); CREATININE 0.9 mg/dL (0.7-1.2); EST GLOMERULAR FILTRATION RATE > 60 mL/min; TOTAL PROTEIN 5.9 g/dL (6.6-8.7)
[2018-12-30 22:59] LABS: GLUCOSE,RANDOM 89 mg/dL (74-109)
[2018-12-30 23:01] LABS: ALCOHOL 0.065 g/dL (0-0.010)
[2018-12-30 23:02] LABS: ALB/GLOB RATIO 1.7 (1.1-1.8); ALBUMIN 3.7 g/dL (4.0-5.0); ALKALINE PHOSPHATASE 54 U/L (40-129); ALT/SGPT 16 U/L (<41); AST/SGOT 30 U/L (10.0-50.0)
[2018-12-31] MEDS ORDERED: LORAZEPAM 2 MG/ML VIAL IV ONE (03:24)
--- NOTE | 2019-01-01 13:09 | RADIOLOGY REPORT ---
EXAM: RIGHT HUMERUS HISTORY: PATIENT FELL DOWN STAIRS TODAY WITH ARM PAIN. TECHNIQUE: AP and lateral views of the right humerus were obtained. Comparison: None. Encounter: Initial. FINDINGS: The right humerus appears intact with no definite fracture of the right humerus identified. Small benign appearing area of sclerotic in the distal humerus laterally. IMPRESSION: NO DEFINITE FRACTURE OF THE RIGHT HUMERUS IDENTIFIED. JOB NUMBER: [id number] [facility]
--- NOTE | 2019-01-01 13:12 | RADIOLOGY REPORT ---
EXAM: RIGHT FOREARM HISTORY: PATIENT FELL DOWN STAIRS TODAY WITH RIGHT ARM PAIN. TECHNIQUE: AP and lateral views of the right forearm were obtained. Comparison: None. Encounter: Initial. FINDINGS: The right forearm appears intact with no definite fracture of the right forearm identified. Apparent small benign appearing area of sclerosis in the lateral aspect of the distal humerus and also in the mid portion of the carpal navicular. IMPRESSION: THE RIGHT FOREARM APPEAR ESSENTIALLY NEGATIVE WITH NO DEFINITE FRACTURE OF THE RIGHT RADIUS OR ULNA IDENTIFIED. JOB [facility]BER: [id number] [facility]
--- NOTE | 2019-01-01 13:28 | CT SCAN REPORT ---
EXAM: EMERGENCY HEAD CT WITHOUT CONTRAST HISTORY: PATIENT FELL DOWN STEPS. TECHNIQUE: Axial CT scan of the head was performed without IV contrast. A preliminary report was provided by [facility]. Comparison: Head CT 12/19/18. Encounter: Initial. FINDINGS: No definite acute intracranial hemorrhage identified. Several calcifications are seen bilaterally in the frontal lobes just lateral to the frontal horns of the lateral ventricles. These may be related to old infection although are nonspecific and correlation with prior work-up suggested. These appear essentially unchanged allowing for slight difference in gantry angulation between the two studies. There is a vertical metallic density in the oral cavity which is presumably an ornamental tongue device. Cyst or polyp anteriorly in the right maxillary sinus, also present previously. No depressed calvarial fracture evident. There is spina bifida of C1 posteriorly, a midline developmental variant. No focal mass effect or midline shift evident intracranially. No definite acute infarct or intracranial mass identified. IMPRESSION: 1. NO DEFINITE ACUTE INTRACRANIAL HEMORRHAGE OR FOCAL MASS EFFECT EVIDENT. 2. BIFRONTAL INTRACRANIAL CALCIFICATIONS BEFORE. 3. CYST OR POLYP RIGHT MAXILLARY SINUS BEFORE. 4. SPINA BIFIDA OF C1 POSTERIORLY. JOB [facility]BER: [id number] [facility]
--- NOTE | 2019-01-01 13:42 | CT SCAN REPORT ---
EXAM: EMERGENCY CT SCAN OF THE CERVICAL SPINE WITHOUT CONTRAST HISTORY: PATIENT FELL DOWN STEPS TONIGHT. TECHNIQUE: Axial CT scan of the entire cervical spine was performed without IV contrast. A preliminary report was provided by [facility]. Comparison: No prior cervical CT with which to compare. Encounter: Initial. FINDINGS: There is a cyst or polyp anteriorly in the right maxillary sinus, also noted on the head CT this evening. There is spina bifida of C1 posteriorly, a midline developmental variant. No apical pneumothorax is evident. No definite acute fracture of the cervical spine identified. No prevertebral soft tissue swelling is evident. Cervical lordosis is maintained. The cervical intervertebral disk spaces are also maintained. IMPRESSION: 1. NO DEFINITE FRACTURE OR PREVERTEBRAL SOFT TISSUE SWELLING SEEN IN THE CERVICAL SPINE. 2. SPINA BIFIDA OF C1 POSTERIORLY, A MIDLINE DEVELOPMENTAL VARIANT. JOB NUMBER: [id number] [facility]
--- NOTE | 2019-01-01 13:49 | CT SCAN REPORT ---
EXAM: CHEST CT WITHOUT CONTRAST HISTORY: PATIENT FELL DOWN STEPS TONIGHT. TECHNIQUE: Axial CT scan of the entire chest was performed without IV contrast. A preliminary report was provided by [facility]. Comparison: No prior chest CT with which to compare. Comparison is made with the chest x-ray of 05/16/17. Encounter: Initial. FINDINGS: No pneumothorax is evident. No acute infiltrate/pulmonary contusion identified in either lung. Somewhat limited evaluation of the mariel and mediastinum without IV contrast. Mild cardiomegaly does appear to be present, however, no pleural or pericardial effusion evident. No definite hilar or mediastinal adenopathy identified. 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 The right scapula appears to be somewhat elevated compared with the left questionably just positional in nature. If there is clinical concern for the right shoulder, conventional right shoulder x-ray series might be useful. Very minor spurring seen in the thoracic spine. No definite acute fracture of the thoracic spine identified and no paraspinal hematoma evident throughout the thoracic region. IMPRESSION: 1. APPARENT MILD CARDIOMEGALY. 2. RIGHT SCAPULA SOMEWHAT SUPERIORLY LOCATED COMPARED TO THE LEFT, BUT NO OBVIOUS DISLOCATION AT THE GLENOHUMERAL JOINT. IF CLINICALLY WARRANTED, RIGHT SHOULDER SERIES COULD BE OBTAINED. 3. OTHER CHRONIC APPEARING FINDINGS NOTED ABOVE. JOB NUMBER: [id number] [facility]
--- NOTE | 2019-01-01 13:55 | CT SCAN REPORT ---
EXAM: EMERGENCY CT OF THE ABDOMEN AND PELVIS WITH CONTRAST HISTORY: PATIENT FELL DOWN STEPS TONIGHT. TECHNIQUE: Axial CT scan of the abdomen and pelvis was performed following IV contrast administration. No oral contrast utilized at the referring physician' s request. Please see the medical record for IV contrast specifics. A preliminary report was provided by [facility]. Comparison: CT of the abdomen and pelvis 06/15/16. FINDINGS: No calcified gallstones are seen within the gallbladder. No definite hepatic, splenic, adrenal, pancreatic, or renal mass identified. Evaluation of the bowel is extremely limited without oral contrast. No definite appendicitis seen. No free intraperitoneal air or free intraperitoneal fluid evident. There is spina bifida of S1, also present previously. IMPRESSION: EMERGENCY CT OF THE ABDOMEN AND PELVIS APPEARS ESSENTIALLY NEGATIVE DESCRIBED ABOVE WITH NO DEFINITE ACUTE FINDINGS IDENTIFIED. JOB NUMBER: [id number] [facility]
== END 2018-12-31 07:11 | disposition short-term general hospital (02) ==
LOC: ER 21:27
DX: G40.409 Other generalized epilepsy and epileptic syndromes, not intractable, without status epilepticus (principal); S22.050A Wedge compression fracture of T5-T6 vertebra, initial encounter for closed fracture; S50.01XA Contusion of right elbow, initial encounter; S50.11XA Contusion of right forearm, initial encounter; I10 Essential (primary) hypertension; F17.210 Nicotine dependence, cigarettes, uncomplicated; W10.9XXA Fall (on) (from) unspecified stairs and steps, initial encounter; Y92.009 Unspecified place in unspecified non-institutional (private) residence as the place of occurrence of the external cause
CPT/HCPCS: 70450; 71250; 72125; 74177; 80053; 80320; 85025; 96361; 96374; 96375; 96376; 99291; 99292; J7030

== ENCOUNTER 2019-01-01 05:54 | Emergency (ER) | payer MEDICAID ==
[2019-01-01 06:21] LABS: BASO % 0.2 % (0-6); EOS % 0.6 % (0-6); GRAN % 73.1 % (47-80); HEMATOCRIT 50.3 % (42.0-52.0); HEMOGLOBIN 16.9 gm/dl (14.0-18.0); LYMPH % 19.4 % (16-45); MEAN CELL VOLUME 93.5 fl (81-97); MEAN CORPUSCULAR HEMOGLOBIN 31.4 pg (27-33); MEAN CORPUSCULAR HGB CONC 33.6 g/dl (32-36); MEAN PLATELET VOLUME 9.4 fl (7.4-10.4); MONO % 6.7 % (0-9); PLATELET COUNT 264 K/uL (130-400); RED BLOOD COUNT 5.38 M/uL (4.40-5.70); WHITE BLOOD COUNT W/O DIFF 14.4 K/uL (4.2-12.2)
--- NOTE | 2019-01-01 06:21 | Emergency Department Record ---
History of Present Illness - General Chief Complaint: Suicide attempt Stated Complaint: SUICIDAL Time Seen by Provider: 01/01/19 06:14 Source: Patient, EMS Mode of Arrival: EMS Limitations: No limitations - History of Present Illness Initial Comments: 33 yo male presents to ED for evaluation following an act of self harm. Patient cut the left wrist following an argument with his SO, patient accompanied with police yelling "kill me dude, I just want to ". Patient denies history of previous self harm or suicide attempt, reports a history of seizures. Patient does admit to drinking alcohol this morning. MD Complaint: Suicidal ideation Onset/Timin -: Hour(s) History of same: No Improves With: None Worsens With: None Context: Recent alcohol abuse Treatments Prior to Arrival: Physical restraints - [place] Coma Scale Eye Response: (4) Open spontaneously Motor Response: (6) Obeys commands Verbal Response: (5) Oriented [place] Total: 15 - Related Data Previous Rx's Medication Instructions Recorded Albuterol Sulfate [Proair Hfa] 2 puff IH QID PRN #1 inhaler 05/16/17 Prednisone [Prednisone 20Mg] 40 mg PO DAILY #10 tab 05/16/17 Allergies Allergy/AdvReac Type Severity Reaction Status Date / Time phenytoin sodium Allergy Severe ANAPHYLAXIS Verified 12/31/18 03:32 [From Dilantin] phenytoin sodium extended Allergy Severe ANAPHYLAXIS Verified 12/31/18 03:32 [From Dilantin] ketorolac tromethamine Allergy Intermediate MUSCLE PAIN Verified 12/31/18 03:32 [From Toradol] fluoxetine HCl [From Prozac] Allergy Unknown PT UNSURE Verified 12/31/18 03:32 OF REACTION aripiprazole [From Abilify] Allergy ANAPHYLAXIS Verified 12/31/18 03:32 carbamazepine [From Tegretol] Allergy ANAPHYLAXIS Verified 12/31/18 03:32 divalproex sodium Allergy ANAPHYLAXIS Verified 12/31/18 03:32 [From Depakote] Review of Systems ROS unobtainable: Other Past Medical History - SOCIAL HISTORY Smoking Status: Light tobacco smoker (<10/day) Drug Use: None - RESPIRATORY Hx Respiratory Disorders: No - CARDIOVASCULAR Hx Cardio Disorders: Yes Hx Hypertension: Yes - NEURO Hx Neuro Disorders: Yes Hx Seizures: Yes - GI Hx GI Disorders: No - Hx Genitourinary Disorders: No - ENDOCRINE Hx Endocrine Disorders: No - MUSCULOSKELETAL Hx Musculoskeletal Disorders: No - PSYCH Hx Psych Problems: No - HEMATOLOGY/ONCOLOGY Hx Hematology/Oncology Disorders: No Family Medical History Hx HTN: Grandparents Physical Exam - General General Appearance: Alert, Oriented x3, Moderate distress, Other (Patient is combative on examination with police) - Head Head exam: Atraumatic, Normocephalic, Normal inspection Head exam detail: negative: Abrasion, Contusion, Ramirez's sign, General tenderness, Hematoma, Laceration - Eye Eye exam: Normal appearance. negative: Conjunctival injection, Periorbital swelling, Periorbital tenderness, Scleral icterus - ENT Ear exam: negative: Auricular hematoma, Auricular trauma Nasal Exam: negative: Active bleeding, Discharge, Dried blood, Foreign body Mouth exam: negative: Drooling, Laceration, Muffled voice, Tongue elevation - Neck Neck exam: Normal inspection. negative: Meningismus, Tenderness - Respiratory Respiratory exam: Normal lung sounds bilaterally. negative: Rales, Respiratory distress, Rhonchi, Stridor - Cardiovascular Cardiovascular Exam: Normal rhythm, Normal heart sounds, Tachycardia - GI/Abdominal GI/Abdominal exam: Soft. negative: Rebound, Rigid, Tenderness - Rectal Rectal exam: Deferred - exam: Deferred - Extremities Extremities exam: Tenderness, Other (Laceration 4.5 cm to the left wrist with active bleeding present, AKA right.). negative: Calf tenderness, Pedal edema - Back Back exam: Denies: CVA tenderness (R), CVA tenderness (L) - Neurological Neurological exam: Alert, Normal gait, Oriented X3 - Psychiatric Psychiatric exam: Normal affect, Normal mood - Skin Skin exam: Normal color. negative: Abrasion Type of lesion: negative: abrasion Course Vital Signs 01/01/19 05:58 Temperature 98.6 F Pulse Rate [ 119 H Pulse Ox Probe] Respiratory 24 Rate Blood Pressure 165/105 [Left Arm] Pulse Ox 95 - Reevaluation(s) Reevaluation #1: 01/01/19 07:11 Laboratory studies reviewed and are grossly unremarkable for an acute process except for the following: WBC 14.4 Alcohol level 0.138 Procedure Note #1: 3.0 cm laceration to the left forearm with bleeding controlled. Wound was cleaned and prepped in sterile fashion, no residual FB identified on examination. Wound was anesthetized with 2.0 mL of 1% Lidocaine with epinephrine with good anesthesia, and the laceration was repaired with #6 4-0 Prolene sutures in interrupted fashion. Patient tolerated the procedure well without complications. Procedure Note#2: 5.5 cm laceration to the left forearm with bleeding controlled. Wound was cleaned and prepped in sterile fashion, no residual FB identified on examination. Wound was anesthetized with 3.5 mL of 1% Lidocaine with epinephrine with good anesthesia, and the laceration was repaired with #11 4-0 Prolene sutures in interrupted fashion. Patient tolerated the procedure well without complications. Patient was updated on all results, certification cannot be completed at this time due to the patient's alcohol level. Case was discussed with oncoming provider, will reassess the patient for suicidal ideation in about 2 hours when his alcohol level is below the legal level. Patient is more cooperative at this time, handcuff removed from the right wrist at this time. Medical Decision Making - Lab Data Result diagrams: 01/01/19 06:15 01/01/19 06:15 Disposition Clinical Impression: Self-harm Laceration of forearm, left Qualifiers: Encounter type: initial encounter Qualified Code(s): S51.812A - Laceration without foreign body of left forearm, initial encounter Alcohol intoxication Qualifiers: Complication of substance-induced condition: uncomplicated Qualified Code(s): F10.920 - Alcohol use, unspecified with intoxication, uncomplicated Forms: Patient Portal Access Time of Disposition: 07:17 Quality - Quality Measures Quality Measures: N/A - Blood Pressure Screening Does Patient Have Any of the Following: No Blood Pressure Classification: Hypertensive Reading Systolic Measurement: 165 Diastolic Measurement: 105 Screening for High Blood Pressure: < First Hypertensive BP, F/U Documented > [ G8950] First Hypertensive Follow-up Interventions: Referral to alternative/primary care provider.
[2019-01-01 06:42] LABS: ACETAMINOPHEN < 5.0 ug/mL (10.0-30.0); ALB/GLOB RATIO 1.7 (1.1-1.8); ALBUMIN 4.3 g/dL (4.0-5.0); ALCOHOL 0.138 g/dL (0-0.010); ALKALINE PHOSPHATASE 69 U/L (40-129); ALT/SGPT 18 U/L (<41); AST/SGOT 26 U/L (10.0-50.0); BLOOD UREA NITROGEN 13 mg/dL (6-20); CREATININE 1.2 mg/dL (0.7-1.2); EST GLOMERULAR FILTRATION RATE > 60 mL/min; GLUCOSE,RANDOM 97 mg/dL (74-109); SALICYLATE < 0.3 mg/dL (2.8-20); TOTAL PROTEIN 6.9 g/dL (6.6-8.7)
--- NOTE | 2019-01-01 07:43 | Emergency Department Record ---
History of Present Illness - General Chief Complaint: Suicide attempt Stated Complaint: SUICIDAL Time Seen by Provider: 01/01/19 06:14 Source: Patient, EMS Mode of Arrival: EMS - History of Present Illness Initial Comments: patient was in an argument with his and she threatened to kill herself and he took a knife and said he was going to kill himself and he cut his left wrist to near the tendons but missed the tendons. Seen initially by Dr Andino and laceration repaired and he was drinking alcohol and his last drink was at 4 am and patient was combative and police called and he was tazored. Now he is more cooperative but he is upset because he is missing a job interview. Onset/Timin -: Hour(s) History of same: No Improves With: None Worsens With: None Context: Recent alcohol abuse Treatments Prior to Arrival: Physical restraints Treatment Prior to Arrival Comment:: p tcame in handcuffs followed pt police. - [place] Coma Scale Eye Response: (4) Open spontaneously Motor Response: (6) Obeys commands Verbal Response: (5) Oriented [place] Total: 15 - Related Data Previous Rx's Medication Instructions Recorded Albuterol Sulfate [Proair Hfa] 2 puff IH QID PRN #1 inhaler 05/16/17 Prednisone [Prednisone 20Mg] 40 mg PO DAILY #10 tab 05/16/17 Allergies Allergy/AdvReac Type Severity Reaction Status Date / Time phenytoin sodium Allergy Severe ANAPHYLAXIS Verified 12/31/18 03:32 [From Dilantin] phenytoin sodium extended Allergy Severe ANAPHYLAXIS Verified 12/31/18 03:32 [From Dilantin] ketorolac tromethamine Allergy Intermediate MUSCLE PAIN Verified 12/31/18 03:32 [From Toradol] fluoxetine HCl [From Prozac] Allergy Unknown PT UNSURE Verified 12/31/18 03:32 OF REACTION aripiprazole [From Abilify] Allergy ANAPHYLAXIS Verified 12/31/18 03:32 carbamazepine [From Tegretol] Allergy ANAPHYLAXIS Verified 12/31/18 03:32 divalproex sodium Allergy ANAPHYLAXIS Verified 12/31/18 03:32 [From Depakote] Review of Systems Reviewed: No additional complaints except as noted below Constitutional: Reports: As per HPI. Denies: Chills, Fever, Malaise, Night sweats, Weakness, Weight change Eyes: Reports: As per HPI. Denies: Eye discharge, Eye pain, Photophobia, Vision change ENT: Reports: As per HPI. Denies: Congestion, Dental pain, Ear pain, Epistaxis , Hearing loss, Throat pain Respiratory: Reports: As per HPI. Denies: Cough, Dyspnea, Hemoptysis, Stridor, Wheezes Cardiovascular: Reports: As per HPI. Denies: Arrhythmia, Chest pain, Dyspnea on exertion, Edema, Murmurs, Orthopnea, Palpitations, Paroxysmal nocturnal dyspnea, Rheumatic Fever, Syncope Endocrine: Reports: As per HPI. Denies: Fatigue, Heat or cold intolerance, Polydipsia, Polyuria Gastrointestinal: Reports: As per HPI. Denies: Abdominal pain, Constipation, Diarrhea, Hematemesis, Hematochezia, Melena, Nausea, Vomiting Genitourinary: Reports: As per HPI. Denies: Dysuria, Frequency, Hematuria, Incontinence, Retention, Testicular pain, Testicular mass, Urgency Musculoskeletal: Reports: As per HPI. Denies: Arthralgia, Back pain, Gout, Joint swelling, Myalgia, Neck pain Skin: Reports: As per HPI. Denies: Bruising, Change in color, Change in hair/ nails, Lesions, Pruritus, Rash Neurological: Reports: As per HPI. Denies: Abnormal gait, Confusion, Headache, Numbness, Paresthesias, Seizure, Tingling, Tremors, Vertigo, Weakness Psychiatric: Reports: As per HPI. Denies: Anxiety, Auditory hallucinations, Depression, Homicidal thoughts, Suicidal thoughts, Visual hallucinations Hematological/Lymphatic: Reports: As per HPI. Denies: Anemia, Blood Clots, Easy bleeding, Easy bruising, Swollen glands Past Medical History - SOCIAL HISTORY Smoking Status: Light tobacco smoker (<10/day) Drug Use: None - RESPIRATORY Hx Respiratory Disorders: No - CARDIOVASCULAR Hx Cardio Disorders: Yes Hx Hypertension: Yes - NEURO Hx Neuro Disorders: Yes Hx Seizures: Yes - GI Hx GI Disorders: No - Hx Genitourinary Disorders: No - ENDOCRINE Hx Endocrine Disorders: No - MUSCULOSKELETAL Hx Musculoskeletal Disorders: No - PSYCH Hx Psych Problems: No - HEMATOLOGY/ONCOLOGY Hx Hematology/Oncology Disorders: No Family Medical History Hx HTN: Grandparents Physical Exam - General General Appearance: Alert, Oriented x3, Cooperative, No acute distress Limitations: No limitations - Head Head exam: Normal inspection - Eye Eye exam: Normal appearance, PERRL Pupils: Normal accommodation - ENT ENT exam: Normal exam, Mucous membranes moist, Normal external ear exam, Normal orophraynx, TM's normal bilaterally Ear exam: Normal external inspection. negative: External canal tenderness Nasal Exam: Normal inspection. negative: Discharge, Sinus tenderness Mouth exam: Normal external inspection, Tongue normal Teeth exam: Normal inspection. negative: Dental caries Throat exam: Normal inspection. negative: Tonsillar erythema, Tonsillar exudate - Neck Neck exam: Normal inspection, Full ROM. negative: Tenderness - Respiratory Respiratory exam: Normal lung sounds bilaterally. negative: Respiratory distress - Cardiovascular Cardiovascular Exam: Regular rate, Normal rhythm, Normal heart sounds - GI/Abdominal GI/Abdominal exam: Soft, Normal bowel sounds. negative: Tenderness - Rectal Rectal exam: Deferred - exam: Deferred - Extremities Extremities exam: Normal inspection, Full ROM, Normal capillary refill. negative: Tenderness - Back Back exam: Reports: Normal inspection, Full ROM. Denies: Muscle spasm, Rash noted, Tenderness - Neurological Neurological exam: Alert, Normal gait, Oriented X3, Reflexes normal - Psychiatric Psychiatric exam: Normal affect, Normal mood - Skin Skin exam: Dry, Intact, Normal color, Warm Course Vital Signs 01/01/19 01/01/19 05:57 05:58 Temperature 98.6 F 98.6 F Pulse Rate 119 H Pulse Rate [ 119 H Pulse Ox Probe] Respiratory 24 24 Rate Blood Pressure 165/105 Blood Pressure 165/105 [Left Arm] Pulse Ox 95 95 - Reevaluation(s) Reevaluation #1: 01/01/19 07:43 geeta and cert filled out. Reevaluation #2: patient is stated he did this for show and not suicidal now. patient blew an alcohol of .07 level. 01/01/19 07:54 Reevaluation #3: discussed case with Vance at [facility] and she accepted the patient. 01/01/19 08:05 Reevaluation #4: police are transporting him to [facility] 01/01/19 08:30 Medical Decision Making - Lab Data Result diagrams: 01/01/19 06:15 01/01/19 06:15 Lab Results 01/01/19 01/01/19 01/01/19 Range/Units 06:15 06:15 06:15 WBC 14.4 H (4.2-12.2) K/uL RBC 5.38 (4.40-5.70) M/uL Hgb 16.9 (14.0-18.0) gm/dl Hct 50.3 (42.0-52.0) % MCV 93.5 (81-97) fl MCH 31.4 (27-33) pg MCHC 33.6 (32-36) g/dl RDW 13.0 (11.5-14.5) % Plt Count 264 (130-400) K/uL MPV 9.4 (7.4-10.4) fl Gran % 73.1 (47-80) % Lymphocytes % 19.4 (16-45) % Monocytes % 6.7 (0-9) % Eosinophils % 0.6 (0-6) % Basophils % 0.2 (0-6) % Sodium 141 (136-145) mmol/L Potassium 3.8 (3.4-4.5) mmol/L Chloride 103 (98-107) mmol/L Carbon Dioxide 18.0 L (22-29) mmol/L Anion Gap 20.0 H (7-16) BUN 13 (6-20) mg/dL Creatinine 1.2 (0.7-1.2) mg/dL Estimated GFR > 60 mL/min Random Glucose 97 (74-109) mg/dL Calcium 9.0 (8.6-10.0) mg/dL Total Bilirubin 0.70 (0.2-1.0) mg/dL AST 26 (10.0-50.0) U/L ALT 18 (<41) U/L Alkaline Phosphatase 69 (40-129) U/L Total Protein 6.9 (6.6-8.7) g/dL Albumin 4.3 (4.0-5.0) g/dL Globulin 2.6 (1.4-4.8) gm/dL Albumin/Globulin Ratio 1.7 (1.1-1.8) TSH 1.00 (0.270-4.20) uIU/mL Salicylates < 0.3 L (2.8-20) mg/dL Acetaminophen < 5.0 L (10.0-30.0) ug/mL Ethyl Alcohol 0.138 H (0-0.010) g/dL Disposition Clinical Impression: Self-harm Laceration of forearm, left Qualifiers: Encounter type: initial encounter Qualified Code(s): S51.812A - Laceration without foreign body of left forearm, initial encounter Alcohol intoxication Qualifiers: Complication of substance-induced condition: uncomplicated Qualified Code(s): F10.920 - Alcohol use, unspecified with intoxication, uncomplicated Suicidal behavior Qualifiers: Attempted self-injury: with attempted self-injury Qualified Code(s): T14.91XA - Suicide attempt, initial encounter Disposition: Acute Care Hospital Transfer Condition: (2) Stable Instructions: Suicide Prevention for Adults (ED) Additional Instructions: patient is being transported to [facility] by police for evaluation Forms: Patient Portal Access Time of Disposition: 08:31 Quality - Quality Measures Quality Measures: N/A - Blood Pressure Screening Does Patient Have Any of the Following: No, Active Dx of HTN Blood Pressure Classification: Hypertensive Reading Systolic Measurement: 165 Diastolic Measurement: 105 Screening for High Blood Pressure: Patient Exclusion, Hx of HTN [G9744]
[2019-01-01] MEDS ORDERED: LISINOPRIL 10 MG TABLET PO ONE (08:15)
[2019-01-01 08:52] LABS: AMPHETAMINE SCREEN URINE NOT DETECTED; BARBITURATE SCREEN URINE NOT DETECTED; BENZODIAZEPINE SCREEN URINE DETECTED; COCAINE SCREEN URINE DETECTED; METHADONE SCREEN URINE NOT DETECTED; METHAMPHETAMINE SCREEN NOT DETECTED; OPIATE SCREEN URINE NOT DETECTED; OXYCODONE SCREEN URINE NOT DETECTED; PHENCYCLIDINE SCREEN URINE NOT DETECTED; PROPOXYPHENE SCREEN URINE NOT DETECTED; THC SCREEN URINE NOT DETECTED; TRICYCLIC ANTIDEPRESSANT SCRN NOT DETECTED
== END 2019-01-01 09:16 | disposition short-term general hospital (02) ==
LOC: ER 05:54
DX: S51.821A Laceration with foreign body of right forearm, initial encounter (principal); F10.920 Alcohol use, unspecified with intoxication, uncomplicated; F14.90 Cocaine use, unspecified, uncomplicated; F15.90 Other stimulant use, unspecified, uncomplicated; F13.90 Sedative, hypnotic, or anxiolytic use, unspecified, uncomplicated; X78.1XXA Intentional self-harm by knife, initial encounter; I10 Essential (primary) hypertension; F17.210 Nicotine dependence, cigarettes, uncomplicated; Y90.6 Blood alcohol level of 120-199 mg/100 ml; Y92.009 Unspecified place in unspecified non-institutional (private) residence as the place of occurrence of the external cause
CPT/HCPCS: 99285 ×2; 12004; 85025; 80053; 84443; 80305; G0480 ×3; J3490; 80320; 80329

== ENCOUNTER 2019-01-07 02:01 | Emergency (ER) | payer MEDICAID ==
[2019-01-07] MEDS ORDERED: CLINDAMYCIN 150 MG CAP PO ONE ×2 (02:09)
--- NOTE | 2019-01-07 02:16 | Emergency Department Record ---
History of Present Illness - General Chief Complaint: Wound, check Stated Complaint: INFECTION Time Seen by Provider: 01/07/19 02:09 Source: Patient Mode of arrival: Ambulatory Limitations: No limitations - History of Present Illness Initial Comments: 33 yo male presents for a check of his left forearm site where he had sutures placed for self inflicted wounds on 01/01/19. Today he has noticed some erythema. No pus or swelling. His sutures remain intact. He has some itching as well. He has full ROM without significant pain. No fevers or chills. MD Complaint: Wound re-check -: Days(s) Initial Visit For: Laceration Returns Today for: Wound recheck Symptoms Since Prior Visit: Worsening redness Associated Symptoms: None, Other (itches some and sore) - Related Data Previous Rx's Medication Instructions Recorded Albuterol Sulfate [Proair Hfa] 2 puff IH QID PRN #1 inhaler 05/16/17 Prednisone [Prednisone 20Mg] 40 mg PO DAILY #10 tab 05/16/17 Clindamycin HCl 300 mg PO Q6H #40 capsule 01/07/19 Allergies Allergy/AdvReac Type Severity Reaction Status Date / Time phenytoin sodium Allergy Severe ANAPHYLAXIS Verified 12/31/18 03:32 [From Dilantin] phenytoin sodium extended Allergy Severe ANAPHYLAXIS Verified 12/31/18 03:32 [From Dilantin] ketorolac tromethamine Allergy Intermediate MUSCLE PAIN Verified 12/31/18 03:32 [From Toradol] fluoxetine HCl [From Prozac] Allergy Unknown PT UNSURE Verified 12/31/18 03:32 OF REACTION aripiprazole [From Abilify] Allergy ANAPHYLAXIS Verified 12/31/18 03:32 carbamazepine [From Tegretol] Allergy ANAPHYLAXIS Verified 12/31/18 03:32 divalproex sodium Allergy ANAPHYLAXIS Verified 12/31/18 03:32 [From Depakote] Review of Systems Constitutional: Denies: Chills, Fever, Malaise, Weakness Eyes: Denies: Eye discharge ENT: Denies: Congestion, Throat pain Respiratory: Denies: Cough Cardiovascular: Denies: Chest pain, Syncope Endocrine: Denies: Fatigue Gastrointestinal: Denies: Abdominal pain, Diarrhea, Nausea, Vomiting Genitourinary: Denies: Dysuria, Frequency Musculoskeletal: Denies: Arthralgia, Myalgia Skin: Reports: Change in color. Denies: Bruising Neurological: Denies: Numbness, Tingling Psychiatric: Denies: Anxiety Hematological/Lymphatic: Denies: Easy bleeding, Easy bruising Past Medical History - SOCIAL HISTORY Smoking Status: Light tobacco smoker (<10/day) Drug Use: None - RESPIRATORY Hx Respiratory Disorders: No - CARDIOVASCULAR Hx Cardio Disorders: Yes Hx Hypertension: Yes - NEURO Hx Neuro Disorders: Yes Hx Seizures: Yes - GI Hx GI Disorders: No - Hx Genitourinary Disorders: No - ENDOCRINE Hx Endocrine Disorders: No - MUSCULOSKELETAL Hx Musculoskeletal Disorders: No - PSYCH Hx Psych Problems: No - HEMATOLOGY/ONCOLOGY Hx Hematology/Oncology Disorders: No Family Medical History Hx HTN: Grandparents Physical Exam - General General Appearance: Alert, Oriented x3, Cooperative, No acute distress Limitations: No limitations - Head Head exam: Atraumatic, Normal inspection - Eye Eye exam: Normal appearance. negative: Conjunctival injection - ENT ENT exam: Normal exam Ear exam: Normal external inspection Nasal Exam: Normal inspection Mouth exam: Normal external inspection - Neck Neck exam: Normal inspection - Cardiovascular Cardiovascular Exam: Regular rate, Normal rhythm, Normal heart sounds Peripheral Pulses: 2+: Radial (L) - Rectal Rectal exam: Deferred - exam: Deferred - Extremities Extremities exam: Full ROM, Normal capillary refill. negative: Normal inspection, Tenderness Image of Full Body: 1 - faint mild erythema of the forearm and distal biceps, full ROM, soft, non tender muscles. No pain with passive ROM 2 - sutures intact, no swelling, no pus, full ROM at the wrist without pain. No signs of abscess, compartment syndrome, or wound dehiscense - Neurological Neurological exam: Alert, Oriented X3 - Psychiatric Psychiatric exam: Normal affect, Normal mood. negative: Agitated, Anxious - Skin Skin exam: Erythema Course Vital Signs 01/07/19 02:07 Pulse Rate [ 95 H Pulse Ox Probe] Respiratory 20 Rate Blood Pressure 142/104 [Right Arm] Pulse Ox 99 - Reevaluation(s) Reevaluation #1: 01/07/19 02:23 The patient has intact lacerations He has mild erythema to the forearm and distal biceps No signs of abscess, deep space infection, compartment syndrome The laceration is intact. The findings are mild at this time. He was given oral Clindamycin in the ED and the second dose for 8am. An Rx was sent in to his pharmacy We discussed reasons for immediate return and the follow up time for suture removal. Disposition Disposition: Discharge Clinical Impression: Cellulitis Disposition: Home, Self-Care Condition: (1) Good Instructions: Cellulitis (ED) Additional Instructions: Call your doctor for the next available follow up appointment Return to the ER for a recheck if worse, any new concerns or questions in the next 2 days if not improving and sooner if worse Take the prescriptions provided as directed every 6 hours Prescriptions: Clindamycin HCl 300 mg PO Q6H #40 capsule Forms: Patient Portal Access Time of Disposition: 02:12 Quality - Quality Measures Quality Measures: N/A - Blood Pressure Screening Does Patient Have Any of the Following: Active Dx of HTN Blood Pressure Classification: Hypertensive Reading Systolic Measurement: 142 Diastolic Measurement: 104 Screening for High Blood Pressure: Patient Exclusion, Hx of HTN [G9744] Pre-Hypertensive Follow-up Interventions: Referral to alternative/primary care provider.
== END 2019-01-07 02:26 | disposition home or self-care (01) ==
LOC: ER 02:01
DX: L03.114 Cellulitis of left upper limb (principal); I10 Essential (primary) hypertension; F17.210 Nicotine dependence, cigarettes, uncomplicated
CPT/HCPCS: 99282

== ENCOUNTER 2019-01-10 14:22 | Emergency (ER) | payer MEDICAID ==
--- NOTE | 2019-01-10 14:44 | Emergency Department Record ---
History of Present Illness - General Chief Complaint: Suture removal Stated Complaint: REMOVE STITCHES Time Seen by Provider: 01/10/19 14:33 Source: Patient, RN notes reviewed - History of Present Illness Initial Comments: suture removal and some erythema of the incision and patient took some out himself Returns Today for: Staple/stitch removal, Wound recheck - Related Data Previous Rx's Medication Instructions Recorded Albuterol Sulfate [Proair Hfa] 2 puff IH QID PRN #1 inhaler 05/16/17 Clindamycin HCl 300 mg PO Q6H #40 capsule 01/07/19 Allergies Allergy/AdvReac Type Severity Reaction Status Date / Time phenytoin sodium Allergy Severe ANAPHYLAXIS Verified 01/10/19 14:31 [From Dilantin] phenytoin sodium extended Allergy Severe ANAPHYLAXIS Verified 01/10/19 14:31 [From Dilantin] ketorolac tromethamine Allergy Intermediate MUSCLE PAIN Verified 01/10/19 14:31 [From Toradol] fluoxetine HCl [From Prozac] Allergy Unknown PT UNSURE Verified 01/10/19 14:31 OF REACTION aripiprazole [From Abilify] Allergy ANAPHYLAXIS Verified 01/10/19 14:31 carbamazepine [From Tegretol] Allergy ANAPHYLAXIS Verified 01/10/19 14:31 divalproex sodium Allergy ANAPHYLAXIS Verified 01/10/19 14:31 [From Depakote] rivaroxaban [From Xarelto] Allergy ANAPHYLAXIS Verified 01/10/19 14:31 Travel Screening - Travel/Exposure Within Last 30 Days Have you traveled within the last 30 days?: No - Travel/Exposure Within Last Year Have you traveled outside the [place] in the last year?: No - Additonal Travel Details Have you been exposed to anyone with a communicable illness?: No - Travel Symptoms Symptom Screening: None Review of Systems Reviewed: No additional complaints except as noted below Constitutional: Reports: As per HPI. Denies: Chills, Fever, Malaise, Night sweats, Weakness, Weight change Eyes: Reports: As per HPI. Denies: Eye discharge, Eye pain, Photophobia, Vision change ENT: Reports: As per HPI. Denies: Congestion, Dental pain, Ear pain, Epistaxis , Hearing loss, Throat pain Respiratory: Reports: As per HPI. Denies: Cough, Dyspnea, Hemoptysis, Stridor, Wheezes Cardiovascular: Reports: As per HPI. Denies: Arrhythmia, Chest pain, Dyspnea on exertion, Edema, Murmurs, Orthopnea, Palpitations, Paroxysmal nocturnal dyspnea, Rheumatic Fever, Syncope Endocrine: Reports: As per HPI. Denies: Fatigue, Heat or cold intolerance, Polydipsia, Polyuria Gastrointestinal: Reports: As per HPI. Denies: Abdominal pain, Constipation, Diarrhea, Hematemesis, Hematochezia, Melena, Nausea, Vomiting Genitourinary: Reports: As per HPI. Denies: Dysuria, Frequency, Hematuria, Incontinence, Retention, Testicular pain, Testicular mass, Urgency Musculoskeletal: Reports: As per HPI. Denies: Arthralgia, Back pain, Gout, Joint swelling, Myalgia, Neck pain Skin: Reports: As per HPI. Denies: Bruising, Change in color, Change in hair/ nails, Lesions, Pruritus, Rash Neurological: Reports: As per HPI. Denies: Abnormal gait, Confusion, Headache, Numbness, Paresthesias, Seizure, Tingling, Tremors, Vertigo, Weakness Psychiatric: Reports: As per HPI. Denies: Anxiety, Auditory hallucinations, Depression, Homicidal thoughts, Suicidal thoughts, Visual hallucinations Hematological/Lymphatic: Reports: As per HPI. Denies: Anemia, Blood Clots, Easy bleeding, Easy bruising, Swollen glands Past Medical History - SOCIAL HISTORY Smoking Status: Light tobacco smoker (<10/day) Alcohol Use: None Drug Use: None - RESPIRATORY Hx Respiratory Disorders: No - CARDIOVASCULAR Hx Cardio Disorders: Yes Hx Hypertension: Yes - NEURO Hx Neuro Disorders: Yes Hx Seizures: Yes - GI Hx GI Disorders: No - Hx Genitourinary Disorders: No - ENDOCRINE Hx Endocrine Disorders: No - MUSCULOSKELETAL Hx Musculoskeletal Disorders: No - PSYCH Hx Psych Problems: No - HEMATOLOGY/ONCOLOGY Hx Hematology/Oncology Disorders: No Family Medical History Any Significant Family History?: Yes Hx HTN: Grandparents Physical Exam - General General Appearance: Alert, Oriented x3, Cooperative, No acute distress - Head Head exam: Normal inspection - Eye Eye exam: Normal appearance, PERRL Pupils: Normal accommodation - ENT ENT exam: Normal exam, Mucous membranes moist, Normal external ear exam, Normal orophraynx, TM's normal bilaterally Ear exam: Normal external inspection. negative: External canal tenderness Nasal Exam: Normal inspection. negative: Discharge, Sinus tenderness Mouth exam: Normal external inspection, Tongue normal Teeth exam: Normal inspection. negative: Dental caries Throat exam: Normal inspection. negative: Tonsillar erythema, Tonsillar exudate - Neck Neck exam: Normal inspection, Full ROM. negative: Tenderness - Respiratory Respiratory exam: Normal lung sounds bilaterally. negative: Respiratory distress - Cardiovascular Cardiovascular Exam: Regular rate, Normal rhythm, Normal heart sounds - GI/Abdominal GI/Abdominal exam: Soft, Normal bowel sounds. negative: Tenderness - Rectal Rectal exam: Deferred - exam: Deferred - Extremities Extremities exam: Normal inspection, Full ROM, Normal capillary refill. negative: Tenderness - Back Back exam: Reports: Normal inspection, Full ROM. Denies: Muscle spasm, Rash noted, Tenderness - Neurological Neurological exam: Alert, Normal gait, Oriented X3, Reflexes normal - Psychiatric Psychiatric exam: Normal affect, Normal mood - Skin Skin exam: Dry, Intact, Normal color, Warm Course Vital Signs 01/10/19 14:26 Temperature 97.6 F Pulse Rate 84 Respiratory 16 Rate Blood Pressure 144/107 Pulse Ox 95 - Reevaluation(s) Reevaluation #1: 01/10/19 14:42 sutures removed Disposition Clinical Impression: Visit for suture removal Disposition: Home, Self-Care Condition: (1) Good Instructions: Stitches Removal (ED) Time of Disposition: 14:43 Quality - Quality Measures Quality Measures: N/A - Blood Pressure Screening Does Patient Have Any of the Following: No Blood Pressure Classification: Hypertensive Reading Systolic Measurement: 144 Diastolic Measurement: 107 Screening for High Blood Pressure: < First Hypertensive BP, F/U Documented > [ G8950] First Hypertensive Follow-up Interventions: Referral to alternative/primary care provider.
== END 2019-01-10 14:47 | disposition home or self-care (01) ==
LOC: ER 14:22
DX: Z48.02 Encounter for removal of sutures (principal)

== ENCOUNTER 2019-01-11 02:40 | Emergency (ER) | payer MEDICAID ==
--- NOTE | 2019-01-11 02:55 | Emergency Department Record ---
History of Present Illness - General Chief complaint: Pain Stated complaint: PAIN Time Seen by Provider: 01/11/19 02:40 Source: Patient Mode of Arrival: Ambulatory Limitations: No limitations - History of Present Illness Initial comments: 33 yo male presents with upper and lower arm pain the last 2 days. He also states his thumb and middle and index fingers are not working the last 1-2 days. He was seen on 01/01/19 with self inflected forearm injuries. He had a laceration repair at that time. He was seen on 01/07/19 with some redness to the forearm. He took Clindamycin as directed. The redness has cleared. The last 1 -2 days he noticed he can not oppose the thumb and middle or index finger which is new. No swelling, no numbness, no warmth or redness. He is right handed. He says his arm has hurt from the shoulder to the fingers since his first self injury ED visit. He has full ROM of the shoulder, elbow and wrist. No deformities. No fevers. No redness. He had his sutures removed today but took a shower so his steri strips fell off. He has taken his [place], Motrin, and Valium prior to arrival and he does drink beer as well. He is out of his Neurontin. MD Complaint: Extremity pain, Joint pain -: Days(s) (1-2 days) Location: Left, Forearm -: Yes Myalgia Radiation: Proximal, Distal Quality: Aching Consistency: Constant Improves with: Immobilization Worsens with: Palpation Associated Symptoms: Denies other symptoms - Related Data Previous Rx's Medication Instructions Recorded Albuterol Sulfate [Proair Hfa] 2 puff IH QID PRN #1 inhaler 05/16/17 Clindamycin HCl 300 mg PO Q6H #40 capsule 01/07/19 Gabapentin [Neurontin] 800 mg PO TID #9 tablet 01/11/19 Allergies Allergy/AdvReac Type Severity Reaction Status Date / Time phenytoin sodium Allergy Severe ANAPHYLAXIS Verified 01/10/19 14:31 [From Dilantin] phenytoin sodium extended Allergy Severe ANAPHYLAXIS Verified 01/10/19 14:31 [From Dilantin] ketorolac tromethamine Allergy Intermediate MUSCLE PAIN Verified 01/10/19 14:31 [From Toradol] fluoxetine HCl [From Prozac] Allergy Unknown PT UNSURE Verified 01/10/19 14:31 OF REACTION aripiprazole [From Abilify] Allergy ANAPHYLAXIS Verified 01/10/19 14:31 carbamazepine [From Tegretol] Allergy ANAPHYLAXIS Verified 01/10/19 14:31 divalproex sodium Allergy ANAPHYLAXIS Verified 01/10/19 14:31 [From Depakote] rivaroxaban [From Xarelto] Allergy ANAPHYLAXIS Verified 01/10/19 14:31 Review of Systems Constitutional: Denies: Chills, Fever, Malaise, Weakness Eyes: Denies: Eye discharge ENT: Denies: Congestion, Throat pain Respiratory: Denies: Cough Cardiovascular: Denies: Chest pain, Syncope Endocrine: Denies: Fatigue Gastrointestinal: Denies: Abdominal pain, Diarrhea, Nausea, Vomiting Genitourinary: Denies: Dysuria, Frequency Musculoskeletal: Reports: Myalgia. Denies: Arthralgia, Back pain Skin: Denies: Bruising, Change in color, Rash Neurological: Denies: Tingling Psychiatric: Reports: Anxiety Hematological/Lymphatic: Denies: Easy bleeding, Easy bruising Past Medical History - SOCIAL HISTORY Smoking Status: Light tobacco smoker (<10/day) Drug Use: None - RESPIRATORY Hx Respiratory Disorders: No - CARDIOVASCULAR Hx Cardio Disorders: Yes Hx Hypertension: Yes - NEURO Hx Neuro Disorders: Yes Hx Seizures: Yes - GI Hx GI Disorders: No - Hx Genitourinary Disorders: No - ENDOCRINE Hx Endocrine Disorders: No - MUSCULOSKELETAL Hx Musculoskeletal Disorders: No - PSYCH Hx Psych Problems: No - HEMATOLOGY/ONCOLOGY Hx Hematology/Oncology Disorders: No Family Medical History Hx HTN: Grandparents Physical Exam - General General Appearance: Alert, Oriented x3, Cooperative, No acute distress Limitations: No limitations - Head Head exam: Atraumatic, Normal inspection - Eye Eye exam: Normal appearance, PERRL. negative: Conjunctival injection, Scleral icterus - ENT ENT exam: Normal exam Ear exam: Normal external inspection Nasal Exam: Normal inspection Mouth exam: Normal external inspection - Neck Neck exam: Normal inspection - Cardiovascular Cardiovascular Exam: Regular rate, Normal rhythm, Normal heart sounds Peripheral Pulses: 2+: Radial (L) - Extremities Extremities exam: Full ROM, Normal capillary refill, Tenderness, Other (the shoulder, biceps, triceps appear normal with normal ROM, he is tender lateral upper arm, the distal forearm laceration is dry and clean with slight superficial wound opening, no warmth or pus, the forearm is very soft and non tender through a ROM, he is able to nearly close his fist but not completely, he is able to touch the tips of his thumb to the finger except for the thumb reaching the 5th digit). negative: Normal inspection - Neurological Neurological exam: Alert, Normal gait, Oriented X3. negative: Motor sensory deficit - Psychiatric Psychiatric exam: Normal affect, Normal mood - Skin Skin exam: Dry, Intact, Normal color, Warm. negative: Erythema Course Vital Signs 01/11/19 02:45 Temperature 97.6 F Pulse Rate [ 90 Pulse Ox Probe] Respiratory 20 Rate Blood Pressure 134/98 [Right Arm] Pulse Ox 100 - Reevaluation(s) Reevaluation #1: The examination today suggests the new symptoms of the last 1-2 days is that he has injured his tendons. The redness of the prior examination of four days ago has resolved. There is no warmth, redness, firmness, drainage, pus, erythema to suggest any infection. No XR's were performed on prior visits. He states the pain from the shoulder to his fingers has been present the entire time but the inability to move his fingers through a full ROM due to weakness is new the last 1-2 days. No sign of compartment syndrome. He will be splinted for support and protection of the forearm He will continue his oral antibiotics until gone. Even though there is no longer a sign of infection I stressed the need to complete his antibiotics I explained that [facility] does not have a hand surgeon. He has a PCP. I recommend he call Sunday for a referral to a hand surgeon as there is not one at [facility]. I clearly explained that the new symptoms of the last 2 days may be a tendon injury that could require surgery. He should be NWB in a splint to prevent further injury. He will be given possible numbers of hand surgeons in [place] and [place] that he can call on Sunday. He states he has seen orthopedic doctors in [place] in the past and can call them as well. 01/11/19 02:59 I explained at length the recommendation for the splint. He is agreeable to the splint and states he has follow up on 01/14 with his doctor 01/11/19 03:14 01/11/19 03:21 He is out of his Neurontin. He is on 800mg TID. This was confirmed in the chart on prior records. A dose was ordered and limited supply until Sunday provided 01/11/19 03:22 Disposition Disposition: Discharge Clinical Impression: Forearm laceration involving tendon Disposition: Home, Self-Care Condition: (2) Stable Instructions: Tendon Laceration (ED) Additional Instructions: You will need to follow up with your doctor and a hand surgeon with the new difficulty moving your fingers as this may mean you have tendon injuries No lifting with your left hand Use the splint for support and comfort Do not get the splint wet Prescriptions: Gabapentin [Neurontin] 800 mg PO TID #9 tablet Referrals: SYDNEY TEMPLETON M.D. [MEDICAL DOCTOR] - HAWA CARTER [MEDICAL DOCTOR] - Forms: Patient Portal Access Time of Disposition: 03:22 Quality - Quality Measures Quality Measures: N/A - Blood Pressure Screening Does Patient Have Any of the Following: No Blood Pressure Classification: Pre-Hypertensive BP Reading Systolic Measurement: 131 Diastolic Measurement: 81 Screening for High Blood Pressure: < Pre-Hypertensive BP, F/U Documented > [ G8950] Pre-Hypertensive Follow-up Interventions: Referral to alternative/primary care provider.
[2019-01-11] MEDS ORDERED: GABAPENTIN 300 MG CAPSULE PO STA (03:19)
--- NOTE | 2019-01-12 21:58 | RADIOLOGY REPORT ---
EXAM: HUMERUS, LEFT HISTORY: ARM PAIN, NO KNOWN INJURY. TECHNIQUE: Two views of the left humerus. COMPARISON: Left shoulder radiographs 12/19/2018. FINDINGS: No acute fracture seen. Alignment at the adjacent shoulder and elbow appear grossly maintained. No radiopaque foreign bodies. Tiny cyst within the inferior glenoid. IMPRESSION: 1. NO ACUTE OSSEOUS FINDINGS. 2. TINY CYST WITHIN THE INFERIOR GLENOID, MAY REPRESENT GLENOHUMERAL ARTHROSIS. JOB NUMBER: [id number] MTDD
--- NOTE | 2019-01-12 22:00 | RADIOLOGY REPORT ---
EXAM: FOREARM, LEFT HISTORY: FOREARM PAIN, NO KNOWN INJURY. TECHNIQUE: Two views of the left forearm. COMPARISON: None. FINDINGS: No acute fracture. No radiopaque foreign bodies. IMPRESSION: NO ACUTE OSSEOUS FINDINGS. JOB NUMBER: [id number] MTDD
== END 2019-01-11 03:42 | disposition home or self-care (01) ==
LOC: ER 02:40
DX: S56 Injury of muscle, fascia and tendon at forearm level (principal); G40.909 Epilepsy, unspecified, not intractable, without status epilepticus; I10 Essential (primary) hypertension; X78.1XXD Intentional self-harm by knife, subsequent encounter; F17.210 Nicotine dependence, cigarettes, uncomplicated
CPT/HCPCS: 99283; 99284

== ENCOUNTER 2019-03-21 23:34 | Emergency (ER) | payer MEDICAID ==
[2019-03-21] MEDS ORDERED: LORAZEPAM 2 MG/ML VIAL IV ONE (23:44)
[2019-03-21] MEDS ORDERED: ACETAMINOPHEN 1,000 MG/100 ML BTL IVPB ONE (23:57)
--- NOTE | 2019-03-22 | Emergency Department Record ---
History of Present Illness - General Chief Complaint: Seizures Stated Complaint: SEIZURES Time Seen by Provider: 03/21/19 23:37 Source: Patient Mode of Arrival: Ambulatory Limitations: No limitations - History of Present Illness Initial Comments: The patient is here due to having 2 seizures at home about 2 hours ago. He was sitting at the time and did have what his friend describes as a tonic clonic type of seizure. He did bite his tongue and was postictal after but was not incontinent. The patient did complaint of a DEL CID and CP after waking up fully. The patient states he normally has a DEL CID after having a seizure but the CP is somewhat new. He describes it more as anxiety has had no SHELIA, SOB, nausea or sweating with the feeling. The patient has a long hx of seizures and states he takes Neurontin and Valium for the seizures but is out of both for the last few days. MD Complaint: Seizure Onset/Timin -: Hour(s) Duration of Episode: 7 -: Minutes(s) Witnessed: Yes - by bystander Trauma: No Seizure History: Known seizure disorder Place: Home Possible Precipitating Event: None Associated Symptoms: Chest pain Treatments Prior to Arrival: None - Related Data Previous Rx's Medication Instructions Recorded Albuterol Sulfate [Proair Hfa] 2 puff IH QID PRN #1 inhaler 05/16/17 Gabapentin [Neurontin] 800 mg PO TID #9 tablet 01/11/19 Gabapentin [Neurontin] 600 mg PO TID #21 tab 03/22/19 Allergies Allergy/AdvReac Type Severity Reaction Status Date / Time phenytoin sodium Allergy Severe ANAPHYLAXIS Verified 01/10/19 14:31 [From Dilantin] phenytoin sodium extended Allergy Severe ANAPHYLAXIS Verified 01/10/19 14:31 [From Dilantin] ketorolac tromethamine Allergy Intermediate MUSCLE PAIN Verified 01/10/19 14:31 [From Toradol] fluoxetine HCl [From Prozac] Allergy Unknown PT UNSURE Verified 01/10/19 14:31 OF REACTION aripiprazole [From Abilify] Allergy ANAPHYLAXIS Verified 01/10/19 14:31 carbamazepine [From Tegretol] Allergy ANAPHYLAXIS Verified 01/10/19 14:31 divalproex sodium Allergy ANAPHYLAXIS Verified 01/10/19 14:31 [From Depakote] rivaroxaban [From Xarelto] Allergy ANAPHYLAXIS Verified 01/10/19 14:31 Travel Screening - Travel/Exposure Within Last 30 Days Have you traveled within the last 30 days?: No - Travel/Exposure Within Last Year Have you traveled outside the [place] in the last year?: No - Additonal Travel Details Have you been exposed to anyone with a communicable illness?: No - Travel Symptoms Symptom Screening: None Review of Systems Constitutional: Denies: Chills Eyes: Denies: Eye discharge ENT: Denies: Congestion Respiratory: Denies: Cough, Dyspnea Cardiovascular: Denies: Arrhythmia Endocrine: Denies: Fatigue Gastrointestinal: Denies: Nausea Genitourinary: Denies: Dysuria Musculoskeletal: Denies: Arthralgia Skin: Denies: Bruising Past Medical History - SOCIAL HISTORY Smoking Status: Light tobacco smoker (<10/day) Alcohol Use: None Alcohol Use Comment: pt denies Drug Use: None - RESPIRATORY Hx Respiratory Disorders: No - CARDIOVASCULAR Hx Cardio Disorders: Yes Hx Hypertension: Yes - NEURO Hx Neuro Disorders: Yes Hx Seizures: Yes - GI Hx GI Disorders: No - Hx Genitourinary Disorders: No - ENDOCRINE Hx Endocrine Disorders: No - MUSCULOSKELETAL Hx Musculoskeletal Disorders: No - PSYCH Hx Psych Problems: No - HEMATOLOGY/ONCOLOGY Hx Hematology/Oncology Disorders: No Family Medical History Any Significant Family History?: No Hx HTN: Grandparents Physical Exam - General General Appearance: Alert, Oriented x3, Cooperative, No acute distress - Head Head exam: Atraumatic, Normocephalic, Normal inspection - Eye Eye exam: Normal appearance, PERRL, EOMI - ENT Throat exam: Normal inspection. negative: Tonsillar erythema, Tonsillar exudate - Neck Neck exam: Normal inspection, Full ROM. negative: Tenderness - Respiratory Respiratory exam: Normal lung sounds bilaterally. negative: Respiratory distress - Cardiovascular Cardiovascular Exam: Regular rate, Normal rhythm, Normal heart sounds - GI/Abdominal GI/Abdominal exam: Soft, Normal bowel sounds. negative: Tenderness - Extremities Extremities exam: Full ROM, Normal capillary refill. 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 negative: Altered, Motor sensory deficit - Psychiatric Psychiatric exam: negative: Agitated, Anxious - Skin Skin exam: negative: Rash Course Vital Signs 03/21/19 23:38 Temperature 97.8 F Pulse Rate 78 Respiratory 28 H Rate Blood Pressure 191/131 Pulse Ox 100 - Reevaluation(s) Reevaluation #1: The patient is doing a lot better at this time. He is resting comfortably and states his CP has resolved. He still does have his DEL CID but it is improving. 03/22/19 00:33 Reevaluation #2: The patient is doing very well at this time. He is sleeping at this time and has normal vital signs. The CP has resolved and the patient has had no seizure activity here. The plan is to check a 2nd Trop at 2:30 am and we will get the patient up walking at 3am. If he is back to normal we can refill the medicines he is out of and have him see his PCP next week. 03/22/19 01:02 Reevaluation #3: The patient is doing very well at this time. He is easily arousable and denies any pain or discomfort. I did discuss the plan with him to recheck a 2nd Trop at 2:30 am. 03/22/19 01:40 Reevaluation #4: The patient is doing very well at this time. He is awake and alert and answering all questions normally. He has no DEL CID or any discomfort of any kind. The patient feels the discomfort was probably from the seizure and it seems very unlikely to be cardiac in origin. He has a Heart Score of 1 which is a very low likely phillips of any cardiac issues and it will be safe to discharge the patient for F/U with his PCP. 03/22/19 03:34 Medical Decision Making - Data Complexity MDM Data: Labs Ordered and/or Reviewed, EKG Ordered and/or Reviewed - Lab Data Result diagrams: 03/22/19 00:15 03/22/19 00:15 - EKG Data -: EKG Interpreted by Me EKG: No Acute Changes, Normal EKG Disposition Disposition: Discharge Clinical Impression: Seizure Disposition: Home, Self-Care Condition: (2) Stable Instructions: Recurrent Seizures in Adults (ED) Additional Instructions: Please continue your regular medicines and restart the Neurontin. Do not drive until seizure free for one year. Please see your doctor next week as planned and return to the ER for any problems. Prescriptions: Gabapentin [Neurontin] 600 mg PO TID #21 tab Forms: Patient Portal Access Time of Disposition: 03:32 Quality - Quality Measures Quality Measures: N/A - Blood Pressure Screening View Details: Yes Does Patient Have Any of the Following: Active Dx of HTN Blood Pressure Classification: Hypertensive Reading Systolic Measurement: 191 Diastolic Measurement: 131 Screening for High Blood Pressure: Patient Exclusion, Hx of HTN [G9744]
[2019-03-22] MEDS ORDERED: 0.9 % SODIUM CHLORIDE 1,000 ML BAG IV ONE (00:02)
[2019-03-22] MEDS ORDERED: LORAZEPAM 2 MG/ML VIAL IV ONE (00:15)
[2019-03-22 00:26] LABS: AMPHETAMINE SCREEN URINE NOT DETECTED; BARBITURATE SCREEN URINE NOT DETECTED; BENZODIAZEPINE SCREEN URINE NOT DETECTED; COCAINE SCREEN URINE NOT DETECTED; METHADONE SCREEN URINE NOT DETECTED; OPIATE SCREEN URINE NOT DETECTED; PHENCYCLIDINE SCREEN URINE NOT DETECTED; PROPOXYPHENE SCREEN URINE NOT DETECTED; THC SCREEN URINE NOT DETECTED; TRICYCLIC ANTIDEPRESSANT SCRN NOT DETECTED
[2019-03-22 00:27] LABS: METHAMPHETAMINE SCREEN NOT DETECTED; OXYCODONE SCREEN URINE NOT DETECTED
[2019-03-22 00:28] LABS: ABSOLUTE NEUTROPHIL COUNT 3.71; BASO % 0.2 % (0-6); EOS % 2.9 % (0-6); GRAN % 66.3 % (47-80); HEMATOCRIT 41.8 % (42.0-52.0); HEMOGLOBIN 14.2 gm/dl (14.0-18.0); LYMPH % 21.8 % (16-45); MEAN CELL VOLUME 96.1 fl (81-97); MEAN CORPUSCULAR HEMOGLOBIN 32.6 pg (27-33); MEAN PLATELET VOLUME 9.5 fl (7.4-10.4); MONO % 8.8 % (0-9); PLATELET COUNT 229 K/uL (130-400); RED BLOOD COUNT 4.35 M/uL (4.40-5.70); RED CELL DISTRIBUTION WIDTH 13.2 % (11.5-14.5); WHITE BLOOD COUNT W/O DIFF 5.6 K/uL (4.2-12.2)
[2019-03-22] MEDS ORDERED: GABAPENTIN 300 MG CAPSULE PO SCH (00:30)
[2019-03-22 00:33] LABS: PARTIAL THROMBOPLASTIN TIME 24.9 SECONDS (24.5-39.1); PROTHROMBIN TIME (PATIENT) 10.6 SECONDS (9.5-12.1)
[2019-03-22 00:36] LABS: BLOOD UREA NITROGEN 20 mg/dL (6-20); CREATININE 1.2 mg/dL (0.7-1.2); EST GLOMERULAR FILTRATION RATE > 60 mL/min; TOTAL PROTEIN 5.8 g/dL (6.6-8.7)
[2019-03-22 00:38] LABS: GLUCOSE,RANDOM 129 mg/dL (74-109)
[2019-03-22 00:41] LABS: ALB/GLOB RATIO 1.9 (1.1-1.8); ALBUMIN 3.8 g/dL (4.0-5.0); ALKALINE PHOSPHATASE 60 U/L (40-129); ALT/SGPT 13 U/L (<41); AST/SGOT 15 U/L (10.0-50.0); CREATINE PHOSPHOKINASE 203 U/L (39-308)
[2019-03-22 00:43] LABS: CKMB 4.2 ng/mL (<6.73)
== END 2019-03-22 03:40 | disposition home or self-care (01) ==
LOC: ER 23:34
DX: G40.909 Epilepsy, unspecified, not intractable, without status epilepticus (principal); R05 Cough; R07.9 Chest pain, unspecified; I10 Essential (primary) hypertension; F17.210 Nicotine dependence, cigarettes, uncomplicated
CPT/HCPCS: 80053; 80305; 80320; 82550; 82553; 84484; 85025; 85610; 85730; 93005; 93010; 96365; 96375; 99284; J7030

== ENCOUNTER 2019-05-28 00:39 | Emergency (ER) | payer MEDICAID ==
[2019-05-28] MEDS ORDERED: KETOROLAC 30 MG/ML VIAL IVP ONE (00:49)
[2019-05-28] MEDS ORDERED: METOCLOPRAMIDE HCL 10 MG/2 ML VIAL IVP ONE (00:49)
[2019-05-28] MEDS ORDERED: DIPHENHYDRAMINE HCL 50 MG/ML VIAL IVP ONE (00:49)
--- NOTE | 2019-05-28 00:55 | Emergency Department Record ---
History of Present Illness - General Chief Complaint: Seizures Stated Complaint: SEIZURES Time Seen by Provider: 05/28/19 00:48 Source: Patient Mode of Arrival: Wheelchair Limitations: No limitations - History of Present Illness Initial Comments: 33 yo male presents to ED for evaluation of repetitive seizures this evening (3) associated with headache and change in vision. Patient denies any focal weakness on examination. Patient reports that his PCP recently decreased his seizure medication (gabapentin). Patient and his SO deny any recent alcohol or drug use. Patient does not use anticoagulation medications at his baseline. Patient denies fevers, chills, or neck stiffness symptoms. MD Complaint: Seizure Onset/Timin -: Days(s) Witnessed: Yes - by bystander Trauma: No Seizure History: Known seizure disorder Place: Home Possible Precipitating Event: None Associated Symptoms: Denies other symptoms Treatments Prior to Arrival: None - [place] Coma Scale Eye Response: (4) Open spontaneously Motor Response: (6) Obeys commands Verbal Response: (5) Oriented [place] Total: 15 - Related Data Home Medications Medication Instructions Recorded Confirmed Last Taken Gabapentin [Neurontin] 400 mg PO TID 05/28/19 05/28/19 Previous Rx's Medication Instructions Recorded Albuterol Sulfate [Proair Hfa] 2 puff IH QID PRN #1 inhaler 05/16/17 Allergies Allergy/AdvReac Type Severity Reaction Status Date / Time phenytoin sodium Allergy Severe ANAPHYLAXIS Verified 01/10/19 14:31 [From Dilantin] phenytoin sodium extended Allergy Severe ANAPHYLAXIS Verified 01/10/19 14:31 [From Dilantin] ketorolac tromethamine Allergy Intermediate MUSCLE PAIN Verified 01/10/19 14:31 [From Toradol] fluoxetine HCl [From Prozac] Allergy Unknown PT UNSURE Verified 01/10/19 14:31 OF REACTION aripiprazole [From Abilify] Allergy ANAPHYLAXIS Verified 01/10/19 14:31 carbamazepine [From Tegretol] Allergy ANAPHYLAXIS Verified 01/10/19 14:31 divalproex sodium Allergy ANAPHYLAXIS Verified 01/10/19 14:31 [From Depakote] rivaroxaban [From Xarelto] Allergy ANAPHYLAXIS Verified 01/10/19 14:31 Review of Systems Constitutional: Denies: Chills, Fever, Malaise, Night sweats Eyes: Denies: Eye discharge, Eye pain ENT: Denies: Congestion, Ear pain, Epistaxis Respiratory: Denies: Cough, Dyspnea Cardiovascular: Denies: Chest pain, Dyspnea on exertion Endocrine: Denies: Fatigue, Heat or cold intolerance Gastrointestinal: Denies: Abdominal pain, Nausea, Vomiting Genitourinary: Denies: Incontinence, Retention Musculoskeletal: Denies: Arthralgia, Back pain Skin: Denies: Bruising, Change in color Neurological: Reports: Headache. Denies: Abnormal gait, Confusion, Numbness, Paresthesias, Tingling, Tremors Psychiatric: Denies: Anxiety Hematological/Lymphatic: Denies: Anemia, Blood Clots Past Medical History - SOCIAL HISTORY Smoking Status: Light tobacco smoker (<10/day) Alcohol Use: Heavy Drug Use: None - RESPIRATORY Hx Respiratory Disorders: No - CARDIOVASCULAR Hx Cardio Disorders: Yes Hx Hypertension: Yes - NEURO Hx Neuro Disorders: Yes Hx Seizures: Yes - GI Hx GI Disorders: No - Hx Genitourinary Disorders: No - ENDOCRINE Hx Endocrine Disorders: No - MUSCULOSKELETAL Hx Musculoskeletal Disorders: No - PSYCH Hx Psych Problems: No - HEMATOLOGY/ONCOLOGY Hx Hematology/Oncology Disorders: No Family Medical History Any Significant Family History?: Yes Hx HTN: Grandparents Physical Exam - General General Appearance: Alert, Oriented x3, Cooperative, Moderate distress Limitations: No limitations - Head Head exam: Atraumatic, Normocephalic, Normal inspection Head exam detail: negative: Abrasion, Contusion, Ramirez's sign, General tenderness, Hematoma, Laceration - Eye Eye exam: PERRL, Other (Left pupil is sluggishly reactive compared with the right pupil.). negative: Conjunctival injection, Periorbital swelling, Periorbital tenderness, Scleral icterus - ENT Ear exam: negative: Auricular hematoma, Auricular trauma Nasal Exam: negative: Active bleeding, Discharge, Dried blood, Foreign body Mouth exam: negative: Drooling, Laceration, Muffled voice, Tongue elevation - Neck Neck exam: Normal inspection. negative: Meningismus, Tenderness - Respiratory Respiratory exam: Normal lung sounds bilaterally. negative: Respiratory distress, Rhonchi, Stridor, Wheezes - Cardiovascular Cardiovascular Exam: Regular rate, Normal rhythm, Normal heart sounds - GI/Abdominal GI/Abdominal exam: Soft. negative: Rebound, Rigid, Tenderness - Rectal Rectal exam: Deferred - exam: Deferred - Extremities Extremities exam: Other (Prosthesis to the RLE on examination). negative: Calf tenderness, Pedal edema, Tenderness - Back Back exam: Denies: CVA tenderness (R), CVA tenderness (L) - Neurological Neurological exam: Alert, Normal gait, Oriented X3 - Psychiatric Psychiatric exam: Normal affect, Normal mood - Skin Skin exam: Normal color. negative: Abrasion Type of lesion: negative: abrasion Course - Reevaluation(s) Reevaluation #1: 05/28/19 01:24 Laboratory studies were reviewed and appear grossly unremarkable for an acute process. Reevaluation #2: 05/28/19 01:43 Patient is back from CT imaging, appears drowsy following medication administration. Patient reports his headache symptoms are improved, does however report that his vision has worsened bilaterally. No obvious abnormality is identified on CT imaging. Awaiting report. Reevaluation #3: 05/28/19 02:02 CT Brain: No acute intracranial process Calcifications frontal liane-ventricular white matter changes Will initiate treatment transfer to [facility] for further evaluation at this time. Reevaluation #4: 05/28/19 02:37 Case was discussed with Dr. Escobedo and Dr. Jacinto, will accept transfer at this time. Patient and SO were updated on the plan of care at this time, patient is drowsy from numerous medications given in ED for headache and spasms. Reevaluation #5: 05/28/19 02:46 Patient now reports that his vision is back to normal, reports that his headache is now gone and he is declining transfer to [facility] for neurology consultation. Following discussion with the patient regarding transfer, patient reports that they want to leave [facility] at this time. Risks of , permanent impairment, or worsening of their current condition were discussed as well as the benefit of transfer and admission for further evaluation of their presenting his vision change symptoms and frequent seizures. The patient is alert, oriented, and answers all questions appropriately. Patient appears to have the capacity to make rational decisions based on my examination. Patients SO was present for the duration of our discussion as well. Patient was encouraged to return to the ED immediately if they change their mind about treatment and want to be re- evaluated. Medical Decision Making - Lab Data Result diagrams: 05/28/19 01:00 05/28/19 01:00 Disposition Disposition: Discharge Clinical Impression: Seizures, Vision changes Disposition: Against Medical Advice Condition: (2) Stable Instructions: Recurrent Seizures in Adults (ED) Additional Instructions: Return to ED if your symptoms worsen or if you have any concerns. Follow-up with your family doctor in 3-5 days as directed. Forms: Patient Portal Access Time of Disposition: 02:50 Quality - Quality Measures Quality Measures: N/A - Blood Pressure Screening Does Patient Have Any of the Following: No Blood Pressure Classification: Hypertensive Reading Systolic Measurement: 156 Diastolic Measurement: 105 Screening for High Blood Pressure: < First Hypertensive BP, F/U Documented > [G8950] First Hypertensive Follow-up Interventions: Referral to alternative/primary care provider.
[2019-05-28] MEDS ORDERED: 0.9 % SODIUM CHLORIDE 1000ML 1,000 ML IV SCH (01:00)
[2019-05-28 01:04] LABS: ABSOLUTE NEUTROPHIL COUNT 3.93; BASO % 0.3 % (0-6); EOS % 3.3 % (0-6); GRAN % 56.1 % (47-80); HEMATOCRIT 46.7 % (42.0-52.0); HEMOGLOBIN 15.8 gm/dl (14.0-18.0); LYMPH % 31.9 % (16-45); MEAN CELL VOLUME 93.4 fl (81-97); MEAN CORPUSCULAR HEMOGLOBIN 31.6 pg (27-33); MEAN CORPUSCULAR HGB CONC 33.8 g/dl (32-36); MEAN PLATELET VOLUME 9.4 fl (7.4-10.4); MONO % 8.4 % (0-9); PLATELET COUNT 283 K/uL (130-400); RED CELL DISTRIBUTION WIDTH 12.4 % (11.5-14.5)
[2019-05-28] MEDS ORDERED: DIAZEPAM 5 MG/1 ML TUBX IVP SCH (01:15)
[2019-05-28 01:20] LABS: LACTIC ACID 1.1 mmol/L (0.5-2.2)
[2019-05-28 01:23] LABS: ALB/GLOB RATIO 2.3 (1.1-1.8); ALBUMIN 4.3 g/dL (4.0-5.0); ALKALINE PHOSPHATASE 69 U/L (40-129); ALT/SGPT 15 U/L (<41); AST/SGOT 15 U/L (10.0-50.0); BILIRUBIN,TOTAL < 0.20 mg/dL (0.2-1.0); BLOOD UREA NITROGEN 13 mg/dL (6-20); CREATININE 1.1 mg/dL (0.7-1.2); EST GLOMERULAR FILTRATION RATE > 60 mL/min; GLUCOSE,RANDOM 96 mg/dL (74-109); TOTAL PROTEIN 6.2 g/dL (6.6-8.7)
[2019-05-28 02:24] LABS: AMPHETAMINE SCREEN URINE NOT DETECTED; BARBITURATE SCREEN URINE NOT DETECTED; BENZODIAZEPINE SCREEN URINE NOT DETECTED; COCAINE SCREEN URINE NOT DETECTED; METHADONE SCREEN URINE NOT DETECTED; METHAMPHETAMINE SCREEN NOT DETECTED; OPIATE SCREEN URINE NOT DETECTED; OXYCODONE SCREEN URINE NOT DETECTED; PHENCYCLIDINE SCREEN URINE NOT DETECTED; PROPOXYPHENE SCREEN URINE NOT DETECTED; THC SCREEN URINE NOT DETECTED; TRICYCLIC ANTIDEPRESSANT SCRN NOT DETECTED
--- NOTE | 2019-05-28 12:48 | CT SCAN REPORT ---
EXAM: CT OF THE HEAD WITHOUT CONTRAST HISTORY: SEIZURE, FALL, LACERATION. TECHNIQUE: Noncontrast CT of the head was obtained. Comparison: 12/19/18, 12/30/18. FINDINGS: Periventricular calcifications of the frontal lobes bilaterally continue in similar fashion. The brain parenchyma otherwise appears grossly unremarkable. The johnson white junction is intact. No mass effect or midline shift. The CSF spaces appear normal. No evidence for intra or extraaxial bleeding. The visualized portions of the paranasal sinuses, mastoids and orbits reveal a retention cyst or polyp present within the anterior right maxillary sinus. Mild mucosal thickening of the left maxillary sinus and bilateral ethmoid air cells. No visualized skull fracture. IMPRESSION: 1. NO ACUTE INTRACRANIAL PROCESS EVIDENT BY NONCONTRAST TECHNIQUE. 2. PARANASAL SINUS DISEASE ABOVE. JOB NUMBER: [id number] [facility]
== END 2019-05-28 02:55 | disposition left against medical advice (07) ==
LOC: ER 00:39
DX: R56.9 Unspecified convulsions (principal); H53.9 Unspecified visual disturbance; F17.210 Nicotine dependence, cigarettes, uncomplicated; Z53.21 Procedure and treatment not carried out due to patient leaving prior to being seen by health care provider
CPT/HCPCS: 99284 ×2; 96374; 96375; 83605; 85025; 80053; 80305; 70450; G0480; 80320; J1200; J2765; J3360; J7030

== ENCOUNTER 2019-08-04 16:01 | Emergency (ER) | payer MEDICAID ==
--- NOTE | 2019-08-04 17:19 | Emergency Department Record ---
History of Present Illness - General Chief Complaint: Animal Bite Stated Complaint: HUMAN BITE LEFT ARM, Time Seen by Provider: 08/04/19 17:10 Source: Patient Mode of Arrival: Ambulatory Limitations: No limitations - History of Present Illness Initial Comments: The patient was not in the room when I went to see him. He eloped. Onset/Timin -: Days(s) Animal: Other - Related Data Home Medications Medication Instructions Recorded Confirmed Last Taken Hydrocodone/Acetaminophen [[place] 1 each PO BID 08/04/19 08/04/19 08/03/19 7.5-325 Tablet] Previous Rx's Medication Instructions Recorded Albuterol Sulfate [Proair Hfa] 2 puff IH QID PRN #1 inhaler 05/16/17 Allergies Allergy/AdvReac Type Severity Reaction Status Date / Time phenytoin sodium Allergy Severe ANAPHYLAXIS Verified 01/10/19 14:31 [From Dilantin] phenytoin sodium extended Allergy Severe ANAPHYLAXIS Verified 01/10/19 14:31 [From Dilantin] ketorolac tromethamine Allergy Intermediate MUSCLE PAIN Verified 01/10/19 14:31 [From Toradol] fluoxetine HCl [From Prozac] Allergy Unknown PT UNSURE Verified 01/10/19 14:31 OF REACTION aripiprazole [From Abilify] Allergy ANAPHYLAXIS Verified 01/10/19 14:31 carbamazepine [From Tegretol] Allergy ANAPHYLAXIS Verified 01/10/19 14:31 divalproex sodium Allergy ANAPHYLAXIS Verified 01/10/19 14:31 [From Depakote] rivaroxaban [From Xarelto] Allergy ANAPHYLAXIS Verified 01/10/19 14:31 Travel Screening - Travel/Exposure Within Last 30 Days Have you traveled within the last 30 days?: No - Travel/Exposure Within Last Year Have you traveled outside the [place] in the last year?: No - Additonal Travel Details Have you been exposed to anyone with a communicable illness?: No - Travel Symptoms Symptom Screening: None Past Medical History - SOCIAL HISTORY Smoking Status: Light tobacco smoker (<10/day) Alcohol Use: None Drug Use Detail:: Cocaine - RESPIRATORY Hx Respiratory Disorders: No - CARDIOVASCULAR Hx Cardio Disorders: Yes Hx Hypertension: Yes - NEURO Hx Neuro Disorders: Yes Hx Seizures: Yes - GI Hx GI Disorders: No - Hx Genitourinary Disorders: No - ENDOCRINE Hx Endocrine Disorders: No - MUSCULOSKELETAL Hx Musculoskeletal Disorders: No - PSYCH Hx Psych Problems: No - HEMATOLOGY/ONCOLOGY Hx Hematology/Oncology Disorders: No Family Medical History Any Significant Family History?: No Hx HTN: Grandparents Course Vital Signs 08/04/19 16:30 Temperature 98.5 F Pulse Rate 99 H Respiratory 16 Rate Blood Pressure 143/108 Pulse Ox 98 Disposition Clinical Impression: Eloped from emergency department Time of Disposition: 17:19 Quality - Quality Measures Quality Measures: N/A - Blood Pressure Screening View Details: Yes Does Patient Have Any of the Following: Active Dx of HTN Blood Pressure Classification: Hypertensive Reading Systolic Measurement: 143 Diastolic Measurement: 108 Screening for High Blood Pressure: Patient Exclusion, Hx of HTN [G9744]
== END 2019-08-04 17:22 | disposition left against medical advice (07) ==
LOC: ER 16:01
DX: Z53.29 Procedure and treatment not carried out because of patient's decision for other reasons (principal)

== ENCOUNTER 2019-08-07 01:27 | Emergency (ER) | payer MEDICAID ==
--- NOTE | 2019-08-07 01:33 | Emergency Department Record ---
History of Present Illness - General Stated complaint: think he broke pinky finger Time Seen by Provider: 08/07/19 01:28 Source: Patient Mode of Arrival: Ambulatory Limitations: No limitations - History of Present Illness Initial comments: 34 yo male presents with concern about injury to his right 5th finger. The patient injured the finger on 07/27/19. He had surgery with Dr Gonzalez. He states he has not had follow up yet. He was having a dispute with his kevin and the police were called. He states during the process of being placed in hand cuffs the officer injured his right fifth finger again. No bleeding. He has pain from the MCP area down the finger. Dr Gonzalez is his surgeon. He presents not wearing any splints. MD Complaint: Extremity pain, Joint pain -: Hour(s) (2) Location: Hand History of Same: Yes -: Yes Arthralgia Radiation: Distal Quality: Aching Consistency: Constant Improves with: Immobilization - Related Data Previous Rx's Medication Instructions Recorded Albuterol Sulfate [Proair Hfa] 2 puff IH QID PRN #1 inhaler 05/16/17 Allergies Allergy/AdvReac Type Severity Reaction Status Date / Time phenytoin sodium Allergy Severe ANAPHYLAXIS Verified 01/10/19 14:31 [From Dilantin] phenytoin sodium extended Allergy Severe ANAPHYLAXIS Verified 01/10/19 14:31 [From Dilantin] ketorolac tromethamine Allergy Intermediate MUSCLE PAIN Verified 01/10/19 14:31 [From Toradol] fluoxetine HCl [From Prozac] Allergy Unknown PT UNSURE Verified 01/10/19 14:31 OF REACTION aripiprazole [From Abilify] Allergy ANAPHYLAXIS Verified 01/10/19 14:31 carbamazepine [From Tegretol] Allergy ANAPHYLAXIS Verified 01/10/19 14:31 divalproex sodium Allergy ANAPHYLAXIS Verified 01/10/19 14:31 [From Depakote] rivaroxaban [From Xarelto] Allergy ANAPHYLAXIS Verified 01/10/19 14:31 Review of Systems Constitutional: Denies: Chills, Fever, Weakness Eyes: Denies: Eye discharge ENT: Denies: Congestion, Throat pain Respiratory: Denies: Cough Cardiovascular: Denies: Chest pain Endocrine: Denies: Fatigue Gastrointestinal: Denies: Abdominal pain, Diarrhea, Nausea, Vomiting Genitourinary: Denies: Dysuria, Frequency, Hematuria Musculoskeletal: Reports: As per HPI, Arthralgia Skin: Denies: Bruising, Change in color Neurological: Denies: Headache Psychiatric: Denies: Anxiety Hematological/Lymphatic: Denies: Easy bleeding, Easy bruising Past Medical History - SOCIAL HISTORY Smoking Status: Light tobacco smoker (<10/day) Drug Use Detail:: Cocaine - RESPIRATORY Hx Respiratory Disorders: No - CARDIOVASCULAR Hx Cardio Disorders: Yes Hx Hypertension: Yes - NEURO Hx Neuro Disorders: Yes Hx Seizures: Yes - GI Hx GI Disorders: No - Hx Genitourinary Disorders: No - ENDOCRINE Hx Endocrine Disorders: No - MUSCULOSKELETAL Hx Musculoskeletal Disorders: No - PSYCH Hx Psych Problems: No - HEMATOLOGY/ONCOLOGY Hx Hematology/Oncology Disorders: No Family Medical History Hx HTN: Grandparents Physical Exam - General General Appearance: Alert, Oriented x3, Cooperative, No acute distress - Head Head exam: Atraumatic, Normocephalic, Normal inspection - Eye Eye exam: Normal appearance - ENT ENT exam: Normal exam Ear exam: Normal external inspection Nasal Exam: Normal inspection Mouth exam: Normal external inspection - Neck Neck exam: Normal inspection - Cardiovascular Cardiovascular Exam: Tachycardia Peripheral Pulses: 2+: Radial (R) - Extremities Extremities exam: Joint swelling, Tenderness. negative: Normal inspection, Full ROM Image of Hand: 1 - mild swelling of the 5th finger, held in slight flexion, healing scabs from his surgery and injuries with intact skin, no acute lacerations, tender at PIP, MCP to the 5th MC. No abnormal warmth, no acute signs of infection - Neurological Neurological exam: Alert, Oriented X3 - Psychiatric Psychiatric exam: Normal affect, Normal mood - Skin Skin exam: Dry, Intact, Normal color, Warm, Other (healing scabs from injury and surgery) Course - Reevaluation(s) Reevaluation #1: 08/07/19 02:11 The XR was reviewed Fracture of the base of the distal phalanx of the third/middle finger may be acute. The patient has mild tenderness at that location No acute injury at the fifth finger surgery site He will be immobilized and instructed to call and follow up with his hand surgeon next available appointment No signs of infection or acute complication of his surgical sight 08/07/19 04:59 Disposition Disposition: Discharge Clinical Impression: Finger fracture, right Disposition: Home, Self-Care Condition: (1) Good Instructions: Hand Fracture (ED) Additional Instructions: Call Dr Kumar tomorrow to schedule your follow up hand surgery visit Keep the hand elevated and protected from further injury Referrals: Ivy Kumar M.D. [MEDICAL DOCTOR] - Forms: Patient Portal Access Time of Disposition: 02:13 Quality - Quality Measures Quality Measures: N/A - Blood Pressure Screening Does Patient Have Any of the Following: No Blood Pressure Classification: Hypertensive Reading Systolic Measurement: 147 Diastolic Measurement: 111 Screening for High Blood Pressure: < Pre-Hypertensive BP, F/U Documented > [G8950] Pre-Hypertensive Follow-up Interventions: Referral to alternative/primary care provider.
--- NOTE | 2019-08-07 02:07 | RADIOLOGY REPORT ---
EXAMINATION: Right Hand, Minimum Three Views EXAM DATE: 08/07/2019 1:58 AM TECHNIQUE: PA, lateral, and oblique INDICATION: recent fracture, surgery, re injured 5th tonight COMPARISON: None ENCOUNTER: Initial FINDINGS: There is a surgical pin seen fixating the fifth digit proximal interphalangeal joint. There appears t o be a nondisplaced fracture at the base of the distal phalanx of the third digit/middle finger. IMPRESSION: 1. Fracture at the base of the distal phalanx of the third digit/middle finger which appears acute b ut please correlate clinically. 2. No other acute fractures are visualized. There are no dislocations. 3. Fixation noted across the proximal interphalangeal joint of the fifth digit. Dictated by: Prabha Arana MD on 08/07/2019 2:00 AM. .
== END 2019-08-07 02:32 | disposition home or self-care (01) ==
LOC: ER 01:27
DX: S62.632A Displaced fracture of distal phalanx of right middle finger, initial encounter for closed fracture (principal); X50.0XXA Overexertion from strenuous movement or load, initial encounter; I10 Essential (primary) hypertension; Y35.811A Legal intervention involving manhandling, law enforcement official injured, initial encounter; F17.210 Nicotine dependence, cigarettes, uncomplicated
CPT/HCPCS: 99283

== ENCOUNTER 2019-10-17 18:00 | Emergency (ER) | payer MEDICAID ==
--- NOTE | 2019-10-17 18:26 | Emergency Department Record ---
History of Present Illness - General Chief Complaint: General Stated Complaint: NEEDS MEDS Time Seen by Provider: 10/17/19 18:15 Source: Patient Mode of Arrival: Ambulatory Limitations: No limitations - History of Present Illness Initial comments: 34 yo male presents to ED as he is out of his Wellbutrin for the past several days. Patient reports that his PCP in [place] (Dr. Salcido) was recently "indicted", and the patient is unable to receive refills on his medications as a result. Patient has a long history of depression and alcohol use, reports that he has an appointment with a new PCP November 07 but needs to refill his Wellbutrin to avoid worsening depression and acting out physically. Patient denies any SI/HI on examination. Onset/Timin -: Week(s) Consistency: Constant Improves with: None Worsens with: None Associated Symptoms: Denies other symptoms Treatments Prior to Arrival: None - [place] Coma Scale Eye Response: (4) Open spontaneously Motor Response: (6) Obeys commands Verbal Response: (5) Oriented [place] Total: 15 - Related Data Home Medications Medication Instructions Recorded Confirmed Last Taken Dextroamphetamine/Amphetamine 15 mg PO DAILY 10/17/19 10/17/19 Unknown [Adderall] Previous Rx's Medication Instructions Recorded Bupropion HCl [Wellbutrin Xl] 150 mg PO BID #42 tab.er.24h 10/17/19 Allergies Allergy/AdvReac Type Severity Reaction Status Date / Time phenytoin sodium Allergy Severe ANAPHYLAXIS Verified 10/17/19 18:12 [From Dilantin] phenytoin sodium extended Allergy Severe ANAPHYLAXIS Verified 10/17/19 18:12 [From Dilantin] ketorolac tromethamine Allergy Intermediate MUSCLE PAIN Verified 10/17/19 18:12 [From Toradol] fluoxetine HCl [From Prozac] Allergy Unknown PT UNSURE Verified 10/17/19 18:12 OF REACTION aripiprazole [From Abilify] Allergy ANAPHYLAXIS Verified 10/17/19 18:12 carbamazepine [From Tegretol] Allergy ANAPHYLAXIS Verified 10/17/19 18:12 divalproex sodium Allergy ANAPHYLAXIS Verified 10/17/19 18:12 [From Depakote] rivaroxaban [From Xarelto] Allergy ANAPHYLAXIS Verified 10/17/19 18:12 Travel Screening - Travel/Exposure Within Last 30 Days Have you traveled within the last 30 days?: No Review of Systems Constitutional: Denies: Chills, Fever, Malaise, Night sweats Eyes: Denies: Eye discharge, Eye pain ENT: Denies: Congestion, Ear pain, Epistaxis Respiratory: Denies: Cough, Dyspnea Cardiovascular: Denies: Chest pain, Dyspnea on exertion Endocrine: Denies: Fatigue, Heat or cold intolerance Gastrointestinal: Denies: Abdominal pain, Nausea, Vomiting Genitourinary: Denies: Incontinence, Retention Musculoskeletal: Denies: Arthralgia, Back pain Skin: Denies: Bruising, Change in color Neurological: Denies: Abnormal gait, Confusion, Headache, Tingling, Tremors Psychiatric: Reports: Depression. Denies: Homicidal thoughts, Suicidal thoughts Hematological/Lymphatic: Denies: Anemia, Blood Clots Past Medical History - SOCIAL HISTORY Smoking Status: Light tobacco smoker (<10/day) Alcohol Use: Occasional - RESPIRATORY Hx Respiratory Disorders: No - CARDIOVASCULAR Hx Cardio Disorders: Yes Hx Hypertension: Yes - NEURO Hx Neuro Disorders: Yes Hx Seizures: Yes (grand mal) - GI Hx GI Disorders: No - Hx Genitourinary Disorders: No - ENDOCRINE Hx Endocrine Disorders: No - MUSCULOSKELETAL Hx Musculoskeletal Disorders: Yes - PSYCH Hx Psych Problems: Yes Hx Anxiety: Yes Hx Depression: Yes Hx Suicide Attempt: Yes Comment:: anger - HEMATOLOGY/ONCOLOGY Hx Hematology/Oncology Disorders: No Family Medical History Any Significant Family History?: No Hx HTN: Grandparents Physical Exam - General General Appearance: Alert, Oriented x3, Cooperative, No acute distress Limitations: No limitations - Head Head exam: Atraumatic, Normocephalic, Normal inspection Head exam detail: negative: Abrasion, Contusion, Ramirez's sign, General tenderness, Hematoma, Laceration - Eye Eye exam: Normal appearance. negative: Conjunctival injection, Periorbital swelling, Periorbital tenderness, Scleral icterus - ENT Ear exam: negative: Auricular hematoma, Auricular trauma Nasal Exam: negative: Active bleeding, Discharge, Dried blood, Foreign body Mouth exam: negative: Drooling, Laceration, Muffled voice, Tongue elevation Throat exam: negative: Tonsillar erythema, Tonsillomegaly, R peritonsillar mass, L peritonsillar mass - Neck Neck exam: Normal inspection. negative: Meningismus, Tenderness - Respiratory Respiratory exam: Normal lung sounds bilaterally. negative: Respiratory distress, Rhonchi, Stridor, Wheezes - Cardiovascular Cardiovascular Exam: Regular rate, Normal rhythm, Normal heart sounds - GI/Abdominal GI/Abdominal exam: Soft. negative: Distended, Rebound, Rigid, Tenderness - Rectal Rectal exam: Deferred - exam: Deferred - Extremities Extremities exam: Normal inspection. negative: Pedal edema, Tenderness - Back Back exam: Denies: CVA tenderness (R), CVA tenderness (L) - Neurological Neurological exam: Alert, Normal gait, Oriented X3 - Psychiatric Psychiatric exam: Normal affect, Normal mood - Skin Skin exam: Normal color. negative: Abrasion Type of lesion: negative: abrasion Course Vital Signs 10/17/19 18:05 Temperature 97.9 F Pulse Rate 91 H Respiratory 20 Rate Blood Pressure 148/93 Pulse Ox 96 - Reevaluation(s) Reevaluation #1: 10/17/19 18:30 Patient is well appearing on examination Denies any suicidal or homicidal thought on examination. Patient does have a long-standing history of seizures, wellbutrin may lower this threshold however patient reports that he has been on the medication until 1 week ago without complications. Patient has been taking his Dilantin as prescribed as well. Will prescribe Wellbutrin for 3 weeks duration to bridge the patient to his new PCP evaluation on November 07. Patient appears stable for discharge at this time. Disposition Disposition: Discharge Clinical Impression: Medication refill Disposition: Home, Self-Care Condition: (2) Stable Instructions: Medicine Refill (ED) Additional Instructions: Return to ED if your symptoms worsen or if you have any concerns. Follow-up with your family doctor as scheduled November 07. Wellbutrin as prescribed. Prescriptions: Bupropion HCl [Wellbutrin Xl] 150 mg PO BID #42 tab.er.24h Forms: Patient Portal Access Time of Disposition: 18:25 Quality - Quality Measures Quality Measures: N/A - Blood Pressure Screening Does Patient Have Any of the Following: No Blood Pressure Classification: Hypertensive Reading Systolic Measurement: 148 Diastolic Measurement: 93 Screening for High Blood Pressure: < First Hypertensive BP, F/U Documented > [[id number]] First Hypertensive Follow-up Interventions: Referral to alternative/primary care provider.
== END 2019-10-17 18:43 | disposition home or self-care (01) ==
LOC: ER 18:00
DX: Z76.0 Encounter for issue of repeat prescription (principal); F32.9 Major depressive disorder, single episode, unspecified; I10 Essential (primary) hypertension; F17.210 Nicotine dependence, cigarettes, uncomplicated
CPT/HCPCS: 99282